=== PATIENT | male | born 1950 | race Caucasian/White ===

== ENCOUNTER 2016-07-31 13:43 | Day surgery (SDC) | payer OTHER ==
[~2016-07-31 13:43] MED LIST: Kenalog-40 IM ONE; Sensorcaine 0.25% 10 ML IJ ONE; Xylocaine 1% Vial 30 ML PF IJ ONE
[2016-07-31] MEDS ORDERED: KEFZOL 1 GM ONE (15:40)
[2016-07-31 15:42] VITALS: BP 154/89; PULSE 96; O2SAT 96
--- NOTE | 2016-07-31 20:59 | XRAY ---
Indication: Right SI joint injection. Intraoperative fluoroscopy was provided for 47 seconds. 2 digital spot images submitted for interpretation demonstrates posterior spinal needle with the tip projecting over the right SI joint. Small amount of contrast injected for needle tip placement. Correlate with intraoperative findings/report.
--- NOTE | 2016-08-01 08:43 | XRAY ---
47 seconds fluoroscopy time in surgery for right SI joint injection.
== END 2016-07-31 17:16 | disposition home or self-care (01) ==
LOC: SDC-PAIN 13:43
PROVIDERS: ATTEND Pain Medicine Interventional Pain Medicine
DX: M45.1 Ankylosing spondylitis of occipito-atlanto-axial region (principal); M25.551 Pain in right hip; M54.6 Pain in thoracic spine
CPT/HCPCS: 27096; 72020; 77003; J0690; J2001; J3301; Q9967

== ENCOUNTER 2017-01-01 08:29 | Emergency (ER) | payer OTHER ==
--- NOTE | 2017-01-01 09:16 | ERPHSYRPT ---
- History of Present Illness Time Seen by Provider: 01/01/17 09:05 Source: patient Exam Limitations: clinical condition Patient Subjective Stated Complaint: states he feels like he is going through withdrawal from tramadol. skin w/d, color normal. resp easy. takes tramadol for chronic knee pain and goes to pain clinic. states is due to have tramadol refilled on january 04 but has run out. last dose was two days ago. c/o insomnia, feeling "jittery", and nervous. Triage Nursing Assessment: ambulated to room per self. skin w/d, color normal, resp easy. c/o feeling nervous, jittery and unable to sleep. denies any pain at this time Physician History: PATIENT WITH A HISTORY OF CHRONIC RIGHT KNEE PAIN AND HAS BEEN OUT OF HIS ULTRAM FOR 2-3 DAYS, FEELS NERVOUS, AND INSOMNIA. HAS MINIMAL PAIN DISCOMFORT. DENIES NAUSEA OR EMESIS. DENIES NAUSEA, EMESIS, PALPITATIONS, ABDOMINAL PAIN OR DIARRHEA Timing/Duration: today Severity: mild Modifying Factors: Improves With: medication Associated Symptoms: other (INSOMNIA, NERVOUSNESS) Allergies/Adverse Reactions: No Known Drug Allergies Allergy (Verified 01/01/17 09:34) Home Medications: Aspirin 81 mg PO DAILY 07/04/16 [History] Atorvastatin Calcium [Lipitor] 80 mg PO DAILY 07/04/16 [History] Carvedilol 12.5 mg [Coreg 12.5 mg] 12.5 mg PO BID 07/04/16 [History] Celecoxib 100 mg [celeBREX 100 MG] 200 mg PO DAILY 07/04/16 [History] Clopidogrel Bisulfate 75 mg [PLAVIX 75 MG Tablet] 75 mg PO DAILY 07/04/16 [History] Dapagliflozin Propanediol [Farxiga] 10 mg PO DAILY 07/04/16 [History] Escitalopram Oxalate [Lexapro] 5 mg PO DAILY 07/04/16 [History] Famotidine 20 mg [Pepcid 20 MG] 40 mg PO DAILY 07/04/16 [History] Insulin Detemir [Levemir] 20 unit IJ BID 07/04/16 [History] Linagliptin/Metformin HCl [Jentadueto 2.5 mg-1000 mg Tab] 2.5 mg PO BID [History] Lisinopril 25 mg PO BID 07/04/16 [History] Silodosin [Rapaflo] 8 mg PO DAILY 07/04/16 [History] Terazosin HCl 2 mg PO DAILY 07/04/16 [History] Testosterone Cypionate 100 mg IM UD 07/04/16 [History] Tramadol HCl 50 mg [Ultram 50 mg] 50 mg PO TID 07/04/16 [History] Hx Tetanus, Diphtheria Vaccination/Date Given: No Hx Influenza Vaccination/Date Given: Yes Hx Pneumococcal Vaccination/Date Given: No Immunizations Up to Date: No - Review of Systems Constitutional: No Fever, No Chills Eyes: No Symptoms Ears, Nose, & Throat: No Symptoms Respiratory: No Symptoms, No Cough, No Dyspnea Cardiac: No Symptoms, No Chest Pain, No Edema, No Syncope Abdominal/Gastrointestinal: No Symptoms, No Abdominal Pain, No Nausea, No Vomiting, No Diarrhea Genitourinary Symptoms: No Symptoms, No Dysuria Musculoskeletal: Joint Pain, No Back Pain, No Neck Pain Skin: No Symptoms, No Rash Neurological: Other (NERVOUSNESS), No Dizziness, No Focal Weakness, No Sensory Changes Psychological: No Symptoms Endocrine: No Symptoms All Other Systems: Reviewed and Negative - Past Medical History Pertinent Past Medical History: Yes Neurological History: No Pertinent History Cardiac History: Arrhythmia, Coronary Artery Disease Respiratory History: No Pertinent History Endocrine Medical History: Diabetes Type II Musculoskeletal History: Osteoarthritis, Other Other Medical History: 09/18 CARDIAC STENT; R ACL TEAR; BILATERAL RTC TEAR W/ REPAIRS; CORTISONE INJECTIONS R KNEE - Past Surgical History Past Surgical History: Yes Cardiac: Cardiac Catheterization, Cardiac Stent Gastrointestinal: Cholecystectomy Musculoskeletal: Orthopedic Surgery Male Surgical History: Prostate Surgery Other Surgical History: bilat rotator cuff surgery - Social History Smoking Status: Never smoker Exposure to second hand smoke: No Drug Use: none Patient Lives Alone: No - Nursing Vital Signs Nursing Vital Signs: Initial Vital Signs Temperature 97.4 F Temperature Source Oral Pulse Rate 57 Respiratory Rate 16 Blood Pressure [Right Arm] 143/78 Pain Intensity 0 - Physical Exam General Appearance: no apparent distress, alert Eye Exam: PERRL/EOMI, eyes nml inspection Ears, Nose, Throat Exam: normal ENT inspection, TMs normal, pharynx normal, moist mucous membranes Neck Exam: normal inspection, non-tender, supple, full range of motion Respiratory Exam: normal breath sounds, lungs clear, No respiratory distress Cardiovascular Exam: regular rate/rhythm, normal heart sounds, normal peripheral pulses Gastrointestinal/Abdomen Exam: soft, normal bowel sounds, No tenderness, No mass Back Exam: normal inspection, normal range of motion, No CVA tenderness, No vertebral tenderness Extremity Exam: normal range of motion (WITH PAIN, PATELLA MIDLINE, FULL RANGE OF MOTION WITH PAIN, NO JOINT LAXITY UPON VALGUS/VARUS STRESS), pelvis stable Neurologic Exam: alert, oriented x 3, cooperative, normal mood/affect, nml cerebellar function, nml station & gait, sensation nml, No motor deficits Skin Exam: normal color, warm, dry, No rash Lymphatic Exam: No adenopathy SpO2 Interpretation: normal SpO2: 97 Oxygen Delivery: Room Air Ordered Tests: Active Orders 24 hr Category Date Time Status [facility] Director STAT Care 01/01/17 09:43 Active - Progress Progress Note: 01/01/17 09:16 CONSULTED PAIN CLINIC PROVIDER IS OUT UNTIL JANUARY 15, 2017, HAD PAIN CLINIC CONTACT HIS FAMILY PHYSICIAN FOR EVALUATION IN AM. PATIENT GIVEN 4 TABLES OF ULTRAM. Counseled pt/family regarding: diagnosis, need for follow-up - Departure Time of Disposition: 10:20 Departure Disposition: Home Clinical Impression: MEDICATION WITHDRAWAL Condition: Stable Critical Care Time: No Referrals: SILVIA JORGE [Primary Care Provider] - Instructions: Chronic Pain -- Adult Additional Instructions: ULTRAM 50MG EVERY 6 HOURS NEEDED. FOLLOWUP WITH YOUR FAMILY PHYSICIAN FOR EVALUATION TOMORROW.
[2017-01-01 10:46] VITALS: BP 141/84; PULSE 61; O2SAT 98
== END 2017-01-01 10:46 | disposition home or self-care (01) ==
LOC: ED 08:29
DX: F11.23 Opioid dependence with withdrawal (principal); I25.10 Atherosclerotic heart disease of native coronary artery without angina pectoris; E11.9 Type 2 diabetes mellitus without complications; Z98.61 Coronary angioplasty status
CPT/HCPCS: 93041; 99281; 99284

== ENCOUNTER 2018-04-24 06:04 | Day surgery (SDC) | payer MEDICARE ==
[2018-04-24] MEDS ORDERED: Ketamine HCl 50 MG/ML IV ONE (06:05)
[2018-04-24] MEDS ORDERED: DIPRIVAN 200 MG/20 ML IV ONE (06:05)
[2018-04-24] MEDS ORDERED: Lactated Ringers 1,000 ML IV ONE (06:26)
[2018-04-24] MEDS ORDERED: Lactated Ringers 1,000 ML IV SCH (06:30)
[2018-04-24 08:32] VITALS: O2SAT 99
[2018-04-24 08:44] VITALS: BP 135/74; PULSE 58
--- NOTE | 2018-04-24 11:01 | OP ---
SURGERY DATE/TIME: 04/23/2018 0725 PREOPERATIVE DIAGNOSIS: Screening exam. POSTOPERATIVE DIAGNOSIS: Normal colon. PROCEDURE: Colonoscopy. SURGEON: Dr. Gruber. ANESTHESIA: MAC. Medications given by anesthesia department. HISTORY: The patient is a 67 year-old white male patient presenting now for his second screening colonoscopy. His previous one was ten years ago. The patient was reappraised of the risks of the procedure including the risk of perforation, phlebitis, untoward reaction to medication, bleeding and missed lesions. The patient verbalized his understanding and desired to have the procedure performed. DESCRIPTION OF PROCEDURE: The patient was given the medications by the anesthesia department. He had continuous pulse oximetry, ECG monitoring, intermittent blood pressure monitoring and tidal CO2 monitoring during the examination. He was placed in the left lateral decubitus position. A digital rectal examination was performed and revealed normal anal sphincter tone, no masses and normal prostate. The flexible Olympus pediatric colonoscope was used to intubate the rectum. A view of the colon was developed sequentially to the cecum. Upon insertion and withdrawal, including a retroflex view in the rectum, no mucosal lesions were encountered. The scope was removed from the patient who tolerated the procedure well and was sent back to OP recovery in good condition. The prep was noted to be poor although adequate for evaluation of the colon. The colon was noted to be quite tortuous as well.
== END 2018-04-24 09:00 | disposition home or self-care (01) ==
LOC: SDC 06:04
PROVIDERS: ATTEND Family Medicine
DX: Z12.11 Encounter for screening for malignant neoplasm of colon (principal)
CPT/HCPCS: 82962; 94250; J2704

== ENCOUNTER 2019-03-22 08:33 | Day surgery (SDC) | payer MEDICARE ==
[~2019-03-22 08:33] MED LIST changes: -Kenalog-40 IM ONE; +Lactated Ringers 1,000 ML IV SCH; -Sensorcaine 0.25% 10 ML IJ ONE; -Xylocaine 1% Vial 30 ML PF IJ ONE
--- NOTE | 2019-03-22 09:58 | HP ---
DATE OF SURGERY: 03/22/2019 HISTORY OF PRESENT ILLNESS: The patient is a 68 year-old with chronic cough. No pain. History of reflux. Upper endoscopy years ago. Family history negative for esophageal or stomach cancer. He has chronic cough. He is in need of upper endoscopy to evaluate for reflux component as etiology. PAST MEDICAL HISTORY: Polycythemia. Chronic back pain. Diabetes mellitus type 2. PAST SURGICAL HISTORY: Both shoulder surgery. Knee replacements. Left hand surgery in the past. 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 MEDICATIONS: Plavix. Coreg. Lisinopril for some hypertension. He has been on glipizide, Levemir, terazosin, anti-inflammatory, aspirin, ranitidine. ALLERGIES: NKDA. FAMILY HISTORY: Cancer, hypertension. SOCIAL HISTORY: No alcohol abuse. REVIEW OF SYSTEMS: Fourteen systems reviewed. No chest pain or palpitations other systems negative or noncontributory as above and per preadmission questionnaire. PHYSICAL EXAMINATION: GENERAL: No acute distress. HEENT: Sclerae nonicteric. NECK: No JVD. CHEST: Equal excursion, nonlabored breathing. CVS: Regular rate and rhythm. ABDOMEN: Soft. No peritoneal signs. EXTREMITIES: No significant edema. NEURO: Alert, oriented, moving extremities symmetrically. No gross motor deficits noted. RECTAL: Deferred timed to endoscopy exam. IMPRESSION: Chronic cough, in need of upper endoscopy to evaluate for etiology. Risks and benefits explained in detail including but not limited to bleeding or infection, risk of bowel injury or perforation, possibly requiring open procedure, risk of missed or nondiagnosis or inability to diagnose the etiology of his symptoms, risk of sedation but not limited to. He understands and agrees to the planned procedure and will proceed with EGD with possible biopsy as an outpatient.
[2019-03-22] MEDS ORDERED: DIPRIVAN 200 MG/20 ML IV ONE (10:24)
[2019-03-22] MEDS ORDERED: Lactated Ringers 1,000 ML IV ONE (11:05)
[2019-03-22 11:34] VITALS: BP 143/69; PULSE 51; O2SAT 100
--- NOTE | 2019-03-22 14:39 | OP ---
SURGERY DATE/TIME: 03/22/2019 1026 PREOPERATIVE DIAGNOSIS: History of some reflux, history of chronic cough. Need for evaluation for esophagitis, gastritis, duodenitis. POSTOPERATIVE DIAGNOSIS: Mild erosive gastritis. PROCEDURES: 1) EGD with cold biopsy of the small bowel to evaluate for celiac sprue, to evaluate duodenitis as he had some duodenal erythema. 2) Cold biopsy of the antrum to evaluate for Helicobacter pylori. 3) Cold biopsy of the distal esophagus to evaluate for mild distal esophagitis changes, random co9ld biopsies mid esophagus to evaluate for eosinophilic esophagitis. SURGEON: Dr. Vamsi Yadav. ANESTHESIA: MAC. ESTIMATED BLOOD LOSS: Minimal. INDICATIONS: As noted above. Risks and benefits explained in detail and not limited to and consent obtained. DESCRIPTION OF PROCEDURE AND FINDINGS: The patient is taken to the operating room. MAC anesthesia introduced. After official time out and no disagreement with planned procedure, bite block positioned. Video gastroscope easily passed down the esophagus through the patent pylorus to the junction of the second and third portion of the duodenum. There were no signs of any obvious ulcers. There was a little bit of erythema in the duodenum. Cold biopsy taken to evaluate for celiac sprue or other etiology. There is no evidence of any ulcers, other masses or other mucosal lesions other than the erythema. The scope pulled back into the stomach. There were a couple of areas of erosions consistent with some mild erosive gastritis. No signs of anything large enough to call an ulcer. No signs of any obvious masses or polyps. Cold biopsy taken to evaluate for Helicobacter pylori. On retroflex the gastroesophageal junction seemed to be fairly snug against the scope. There were no signs of any endoscopically visible large hiatal hernia. Scope is straightened. Gastroesophageal junction about 41 cm. There was a little bit of phlegm in the distal esophagus. Some cold biopsy taken to evaluate for any kind of esophagitis. There were no gross signs of erythema. No signs of any obvious masses. Cold biopsy taken distal esophagus. Good hemostasis noted. Otherwise he had some reflux, some random cold biopsies of mid esophagus to evaluate for eosinophilic esophagitis to rule out other etiology. Good hemostasis noted. The patient tolerated the procedure well. The family was not initially in the waiting room to discuss the findings with, will see them a little later.
== END 2019-03-22 11:47 | disposition home or self-care (01) ==
LOC: SDC 08:33
PROVIDERS: ATTEND Surgery
DX: K29.70 Gastritis, unspecified, without bleeding (principal); E11.9 Type 2 diabetes mellitus without complications; I10 Essential (primary) hypertension; Z79.01 Long term (current) use of anticoagulants; Z79.899 Other long term (current) drug therapy
CPT/HCPCS: 82962; 88305; 99100; J2704

== ENCOUNTER 2019-10-07 17:36 | Inpatient (IN) | payer MEDICARE ==
[2019-10-07] MEDS ORDERED: Sodium Chloride 0.9% 1000 ML 1,000 ML IV STA (18:07)
[2019-10-07] MEDS ORDERED: TYLENOL 325 MG PO ONE (18:07)
[2019-10-07] MEDS ORDERED: DUONEB 0.5-3 MG/3 ml Neb IH ONE (18:09)
[2019-10-07 18:17] LABS: A-aADO2 100; ABG POTASSIUM 4.4 (3.5-5.1); ABG SITE RIGHT RADIAL; ALLEN TEST OK? YES; ARTERIAL BLOOD GAS BASE EXCESS -1.4 (-2.0-2.0); ARTERIAL BLOOD GAS FIO2 28 %; ARTERIAL BLOOD GAS PCO2 27 mmHg (35-45); ARTERIAL BLOOD GAS PO2 66 mmHg (75-100); ARTERIAL BLOOD GAS pH 7.49 (7.35-7.45); CARBOXYHEMOGLOBIN 1.3 % THgb (0.0-6.9); HCO3- 20.6 (22-28); HGB O2 SAT 92.8 g/dF (94-100)
--- NOTE | 2019-10-07 18:17 | ERPHSYRPT ---
- History of Present Illness Time Seen by Provider: 10/07/19 18:01 Source: patient Exam Limitations: no limitations Physician History: 69 years old male with history of COPD, coronary artery disease status post stenting, diabetes mellitus presented in the ER with chief complaint of fever and chills along with generalized body ache for almost 1 week. Patient report initially it started as upset stomach with some nausea and diarrhea which is getting better and now is having more cough productive of yellow-green sputum, copious in amount associated with some shortness of breath. Fever was 102 prior to arrival. Is also complaining of chest soreness all over. Denies any sick contact. Patient also reported he feels drained/fatigued with no energy to do his routine activity and wants to sleep all the time. Timing/Duration: week(s) (1), gradual onset, worse Cough Quality/Degree: severe, productive cough, sputum Modifying Factors: Improves With: activity, coughing, deep breath, exertion Associated Symptoms: fever, chills, chest pain/soreness, cough, muscle aches, shortness of breath, sore throat Allergies/Adverse Reactions: metformin Adverse Reaction (Verified 10/07/19 18:32) Stomach Pain Home Medications: Atorvastatin Calcium [Lipitor] 80 mg PO DAILY 07/04/16 [History] Carvedilol 12.5 mg [Coreg 12.5 mg] 25 mg PO BID 07/04/16 [History] Terazosin HCl 2 mg PO DAILY 07/04/16 [History] lisinopriL [Lisinopril] 2.5 mg PO DAILY 07/04/16 [History] Ranitidine HCl [Zantac 75] 150 mg PO BID 04/22/18 [History] Albuterol 8 gm Mdi Hfa [Ventolin Hfa MDI] 8 gm IH QID 02/23/19 [History] Brimonidine Tartrate/Timolol [Combigan 0.2%-0.5% Eye Drops] 15 ml OP BID [History] Duloxetine HCl 30 mg [Cymbalta 30 MG Capsule] 30 mg PO DAILY 02/23/19 [ History] Fluticasone Furoate [Flonase Sensimist] 5.9 ml NS DAILY 02/23/19 [History] Ropinirole HCl 1 mg PO HS 02/23/19 [History] Insulin Aspart [Novolog] 0 unit SQ TIDWM 03/22/19 [History] Insulin Glargine,Hum.rec.anlog [Toujeo Solostar] 42 unit SQ HS 03/22/19 [History ] Tramadol HCl [Ultram] 50 mg PO HS 03/22/19 [History] Hx Tetanus, Diphtheria Vaccination/Date Given: No Hx Influenza Vaccination/Date Given: Yes Hx Pneumococcal Vaccination/Date Given: No Travel Risk - International Travel Have you traveled outside of the country in past 3 weeks: No Have you or anyone close to you been diagnosed with or: No Do your reside in a community with a known COVID-19 case?: No - Review of Systems Constitutional: Fever, Chills, Fatigue, Malaise Ears, Nose, & Throat: No Symptoms Respiratory: Cough, Dyspnea, Wheezing Cardiac: Chest Pain Abdominal/Gastrointestinal: Abdominal Pain, Nausea, Diarrhea Genitourinary Symptoms: No Symptoms Musculoskeletal: Back Pain Skin: No Symptoms Neurological: No Symptoms Psychological: No Symptoms Endocrine: No Symptoms Hematologic/Lymphatic: No Symptoms Immunological/Allergic: No Symptoms - Past Medical History Pertinent Past Medical History: Yes Neurological History: No Pertinent History ENT History: Glaucoma Cardiac History: Arrhythmia, Hypertension Respiratory History: Asthma Endocrine Medical History: Diabetes Type II Musculoskeletal History: Arthritis GI Medical History: GERD History: No Pertinent History Psycho-Social History: Anxiety Male Reproductive Disorders: Prostate Problems Other Medical History: Pt is poor historian bt describes symptoms consistent with a previous episode of Afib - Past Surgical History Past Surgical History: Yes Neuro Surgical History: No Pertinent History Cardiac: Cardiac Catheterization, Cardiac Stent Respiratory: No Pertinent History Gastrointestinal: Cholecystectomy Genitourinary: No Pertinent History Musculoskeletal: Orthopedic Surgery Male Surgical History: No Pertinent History, Vasectomy Other Surgical History: bilat rotator cuff surgery, right total knee. - Social History Smoking Status: Never smoker Exposure to second hand smoke: No Drug Use: none Patient Lives Alone: No - Nursing Vital Signs Nursing Vital Signs: Initial Vital Signs Temperature 99.8 F 10/07/19 18:13 Pulse Rate 47 L 10/07/19 18:13 Respiratory Rate 24 10/07/19 18:13 Blood Pressure 157/78 10/07/19 18:13 O2 Sat by Pulse Oximetry 98 10/07/19 18:13 Pain Scale Pain Intensity 8 - Physical Exam General Appearance: mild distress, alert Eye Exam: PERRL/EOMI, eyes nml inspection Ears, Nose, Throat Exam: TMs normal, pharyngeal erythema Neck Exam: normal inspection, non-tender, supple, full range of motion Respiratory Exam: lungs clear, diminished breath sounds, crackles/rales Cardiovascular Exam: normal heart sounds, bradycardia Gastrointestinal/Abdomen Exam: soft, normal bowel sounds, tenderness ( Generalized mild) Back Exam: normal inspection, No CVA tenderness Extremity Exam: normal inspection, normal range of motion Neurologic Exam: alert, oriented x 3, cooperative, sensation nml Skin Exam: normal color SpO2 Interpretation: normal O2 Delivery: Nasal Cannula - Course Nursing assessment & vital signs reviewed: Yes EKG Interpreted by Me: RATE, NORMAL AXIS, Other (PVCs) Ordered Tests: Active Orders 24 hr Category Date Time Status EKG-ER Only STAT Care 10/07/19 18:07 Active IV Insertion STAT Care 10/07/19 18:07 Active CHEST 1 VIEW (PORTABLE) Stat Exams 10/07/19 18:08 Taken ARTERIAL BLOOD GASES Stat Lab 10/07/19 18:10 Completed BLOOD CULTURE Stat Lab 10/07/19 19:30 Received CBC W DIFF Stat Lab 10/07/19 19:30 Completed CMP Stat Lab 10/07/19 19:30 Received LIPASE Stat Lab 10/07/19 19:30 Received Lactic Acid Stat Lab 10/07/19 18:07 Completed MAGNESIUM Stat Lab 10/07/19 19:30 Received Manual Differential NC Stat Lab 10/07/19 19:30 Completed NT PRO BNP Stat Lab 10/07/19 19:30 Received TROPONIN Q3H Lab 10/07/19 19:30 Received TROPONIN Q3H Lab 10/07/19 21:15 Ordered TROPONIN Q3H Lab 10/08/19 00:15 Ordered TROPONIN Q3H Lab 10/08/19 03:15 Ordered TROPONIN Q3H Lab 10/08/19 06:15 Ordered UA W/RFX UR CULTURE Stat Lab 10/07/19 18:08 Uncollected Respiratory MDI STAT RT 10/07/19 18:25 Active Respiratory Therapy Assessment DAILY RT 10/07/19 18:26 Active Medication Summary Generic Name Dose Route Start Last Admin Trade Name Freq PRN Reason Stop Dose Admin Sodium Chloride 1,000 mls @ 499 mls/hr 10/07/19 18:07 10/07/19 18:41 Sodium Chloride 0.9% 1000 Ml IV 10/07/19 20:07 499 mls/hr .Q2H1M STA Administration Azithromycin 500 mg in 250 mls @ 250 mls/hr 10/07/19 19:00 10/07/19 19:22 Zithromax 500 Mg/ 250 Ml Nacl Premix IV 10/07/19 19:59 250 mls/hr STAT STA 250 mls/hr Administration Discontinued Medications Generic Name Dose Route Start Last Admin Trade Name Manuel PRN Reason Stop Dose Admin Acetaminophen 650 mg 10/07/19 18:07 10/07/19 18:44 Tylenol 325 Mg PO 10/07/19 18:08 650 mg STAT ONE Administration Acetaminophen Confirm 10/07/19 18:43 Tylenol 325 Mg Administered 10/07/19 18:44 Dose 650 mg .ROUTE .STK-MED ONE Albuterol Sulfate 2 puff 10/07/19 18:25 10/07/19 18:20 Ventolin Common Canister IH 10/07/19 18:26 2 puff ONCE ONE Administration Albuterol/Ipratropium 3 ml 10/07/19 18:09 10/07/19 18:45 Duoneb 0.5-3 Mg/3 Ml Neb IH 10/07/19 18:10 Not Given STAT ONE Magnesium Sulfate/Dextrose Confirm 10/07/19 18:24 Magnesium 1 Gm / 100 Ml D5w Administered 10/07/19 18:25 Dose 200 mls @ ud IV .STK-MED ONE Sodium Chloride Confirm 10/07/19 18:24 Sodium Chloride 0.9% 1000 Ml Administered 10/07/19 18:25 Dose 1,000 mls @ ud .ROUTE .STK-MED ONE Piperacillin Sod/Tazobactam Sod 3.375 gm in 100 mls @ 200 mls/hr 10/07/19 19: 00 10/07/19 19:24 Zosyn 3.375gm/100 Ml D5w IV 10/07/19 19:29 200 mls/hr STAT STA 200 mls/hr Administration Azithromycin Confirm 10/07/19 19:19 Zithromax 500 Mg/ 250 Ml Nacl Premix Administered 10/07/19 19:20 Dose 500 mg in 250 mls @ ud IV .STK-MED ONE Piperacillin Sod/Tazobactam Sod Confirm 10/07/19 19:19 Zosyn 3.375gm/100 Ml D5w Administered 10/07/19 19:20 Dose 3.375 gm in 100 mls @ ud IV .STK-MED ONE Lab/Rad Data: Laboratory Result Diagrams 10/07/19 19:30 Laboratory Results 10/07/19 10/07/19 10/07/19 Range/Units Unknown 19:30 18:10 WBC 6.2 (4.0-10.5) K/mm3 RBC 5.80 H (4.1-5.6) M/mm3 Hgb 15.5 (12.5-18.0) gm/dl Hct 44.9 (42-50) % MCV 77.4 L (78-100) fl MCH 26.7 (26-32) pg MCHC 34.5 (32-36) g/dl RDW 16.3 H (11.5-14.0) % Plt Count 96 L (150-450) K/mm3 Puncture Site RIGHT RADIAL pCO2 27 L (35-45) mmHg pO2 66 L (75-100) mmHg Base Excess -1.4 (-2.0-2.0) O2 Saturation 92.8 L (94-100) g/dF ABG pH 7.49 H (7.35-7.45) ABG HCO3 20.6 L (22-28) ABG O2 Sat (Measured) 95.0 (95-100) % Khalif Test YES A-a Gradient 100 a/A Ratio 0.40 Hemoglobin 16.0 Carboxyhemoglobin 1.3 (0.0-6.9) % THgb Methemoglobin 1.0 L (1.4-1.5) % Potassium 4.4 (3.5-5.1) Temperature 37.0 C POC O2 Flow Rate 28 % Lactic Acid (0.4-2.0) Influenza Type A Ag NEGATIVE (NEGATIVE) Influenza Type B Ag NEGATIVE (NEGATIVE) RSV (PCR) NEGATIVE (Negative) 10/07/19 Range/Units 18:07 WBC (4.0-10.5) K/mm3 RBC (4.1-5.6) M/mm3 Hgb (12.5-18.0) gm/dl Hct (42-50) % MCV (78-100) fl MCH (26-32) pg MCHC (32-36) g/dl RDW (11.5-14.0) % Plt Count (150-450) K/mm3 Puncture Site pCO2 (35-45) mmHg pO2 (75-100) mmHg Base Excess (-2.0-2.0) O2 Saturation (94-100) g/dF ABG pH (7.35-7.45) ABG HCO3 (22-28) ABG O2 Sat (Measured) (95-100) % Khalif Test A-a Gradient a/A Ratio Hemoglobin Carboxyhemoglobin (0.0-6.9) % THgb Methemoglobin (1.4-1.5) % Potassium (3.5-5.1) Temperature C POC O2 Flow Rate % Lactic Acid 1.2 (0.4-2.0) Influenza Type A Ag (NEGATIVE) Influenza Type B Ag (NEGATIVE) RSV (PCR) (Negative) - Progress Progress: improved, re-examined Air Movement: fair Progress Note: 10/07/19 19:49 69 years old is evaluated for fever chills and cough along with shortness of breath. He is given a small bolus of fluid along with Tylenol and inhaler. Patient EKG showed bigeminy and is given a dose of magnesium. Has heart rate is in 80s. ABG did not show hypoxemia or hypercapnia. Has normal white count normal lactate. Negative flu screen. Chest x-ray showed bilateral pneumonia and started on broad-spectrum antibiotics. Discussed with Dr. Schmid patient is accepted for admission. Moderate screening testing is done with pending results. Will place patient in isolation negative pressure room. Blood Culture(s) Obtained: Yes Antibiotics given: Yes Discussed with : Nel Will see patient in: hospital (full admit) Counseled pt/family regarding: lab results, diagnosis, rad results - Departure Departure Disposition: In-patient Admission Clinical Impression: Pneumonia Qualifiers: Pneumonia type: due to unspecified organism Laterality: bilateral Lung location : unspecified part of lung Qualified Code(s): J18.9 - Pneumonia, unspecified organism Condition: Fair Critical Care Time: Yes Critical Care Time(excluding separately billable procedures): Critical 30-74 mins Referrals: FATOU VALADEZ [Primary Care Provider] -
[2019-10-07] MEDS ORDERED: Magnesium 1 Gm / 100 Ml D5W*** 200 ML IV ONE (18:24)
[2019-10-07] MEDS ORDERED: Sodium Chloride 0.9% 1000 ML 1,000 ML ONE (18:24)
[2019-10-07] MEDS ORDERED: VENTOLIN COMMON CANISTER IH ONE (18:25)
[2019-10-07] MEDS ORDERED: TYLENOL 325 MG ONE (18:43)
[2019-10-07] MEDS ORDERED: Zithromax 500 MG/ 250 ML NaCl Premix 500 MG/250 ML IVPB IV STA (19:00)
[2019-10-07] MEDS ORDERED: Zosyn 3.375GM/100 Ml D5W 3.375 GM/100 ML IVPB IV STA (19:00)
[2019-10-07] MEDS ORDERED: Zithromax 500 MG/ 250 ML NaCl Premix 500 MG/250 ML IVPB IV ONE (19:19)
[2019-10-07] MEDS ORDERED: Zosyn 3.375GM/100 Ml D5W 3.375 GM/100 ML IVPB IV ONE (19:19)
[2019-10-07 19:42] LABS: Hematocrit 44.9 % (42-50); Hemoglobin 15.5 gm/dl (12.5-18.0); Mean Cell Volume 77.4 fl (78-100); Mean Corpuscular Hemoglobin 26.7 pg (26-32); Mean Corpuscular Hgb Concent. 34.5 g/dl (32-36); Platelet Count 96 K/mm3 (150-450); Red Cell Distribution Width 16.3 % (11.5-14.0); White Blood Count 6.2 K/mm3 (4.0-10.5)
[2019-10-07 19:42] LABS: INFLUENZA A NEGATIVE (NEGATIVE); INFLUENZA B NEGATIVE (NEGATIVE); RESPIRATORY SYNCTIAL VIRUS NEGATIVE (Negative)
[2019-10-07 19:51] LABS: ALBUMIN 3.9 g/dL (3.5-5.0); ALKALINE PHOSPHATASE 108 U/L (38-126); ANION GAP 13.2 MEQ/L (5-15); BLOOD UREA NITROGEN 24 mg/dL (9-20); CHLORIDE 102 mmol/L (98-107); Calcium 8.9 mg/dL (8.4-10.2); Carbon Dioxide 28 mmol/L (22-30); Creatinine 1 0.92 mg/dL (0.66-1.25); Glucose 154 mg/dL (74-106); LIPASE 27 U/L (23-300); Potassium 4.2 mmol/L (3.5-5.1); SGOT/AST 40 U/L (17-59); SGPT/ALT 17 U/L (0-50); SODIUM 138 mmol/L (137-145); Total Protein 7.4 g/dL (6.3-8.2)
[2019-10-07 20:00] LABS: MAGNESIUM 1.8 mg/dL (1.6-2.3)
[2019-10-07] MEDS ORDERED: ULTRAM 50 MG PO ONE (20:00)
[2019-10-07] MEDS ORDERED: ULTRAM 50 MG ONE (20:14)
[2019-10-07] MEDS ORDERED: HUMULIN R SQ PRN (21:21)
[2019-10-07] MEDS ORDERED: Phenergan 25 MG INJ IV PRN (22:24)
[2019-10-07] MEDS ORDERED: HYTRIN 1 MG ONE (22:52)
[2019-10-07] MEDS ORDERED: Cymbalta 30 MG Capsule ONE (22:52)
[2019-10-07] MEDS ORDERED: ZOCOR 20MG ONE (22:53)
[2019-10-07] MEDS ORDERED: Pepcid 20 MG ONE (22:53)
[2019-10-07] MEDS ORDERED: REQUIP 2MG TAB ONE (22:53)
[2019-10-07] MEDS ORDERED: ZOCOR 20MG PO ONE (23:00)
[2019-10-07] MEDS: NEURONTIN 300 MG PO SCH (23:35)
[2019-10-07] MEDS: Pepcid 20 MG PO SCH (23:35)
[2019-10-07] MEDS: COREG 12.5 MG PO SCH (23:36)
[2019-10-07] MEDS: TYLENOL 325 MG PO PRN (23:37)
[2019-10-08] MEDS ORDERED: Zosyn 3.375 GM Vial IV ONE ×2 (00:22→05:19)
[2019-10-08 00:25] LABS: ANISOCYTOSIS 1+; Lymphocytes 12 % (24-44); Monocyte 4 % (0.0-12.0); Neutrophils 84 % (36.-66.); Poikilocytosis RARE; Total Cells Counted 100; Toxic Granulation RARE
[2019-10-08 00:26] LABS: Platelet Estimate DECREASED (NORMAL)
[2019-10-08] MEDS: Zosyn 3.375 GM Vial 3.375 GM in Sodium Chloride 100ML MINI-BAG PLUS 100 ML IV SCH ×3 (01:23→12:15)
[2019-10-08] MEDS ORDERED: VENTOLIN COMMON CANISTER IH PRN (02:37)
[2019-10-08 04:24] LABS: ALBUMIN 2.9 g/dL (3.5-5.0); ALKALINE PHOSPHATASE 77 U/L (38-126); ANION GAP 10.3 MEQ/L (5-15); BLOOD UREA NITROGEN 25 mg/dL (9-20); CHLORIDE 107 mmol/L (98-107); Carbon Dioxide 24 mmol/L (22-30); Glucose 157 mg/dL (74-106); Potassium 4.1 mmol/L (3.5-5.1); SGOT/AST 41 U/L (17-59); SGPT/ALT 14 U/L (0-50); SODIUM 137 mmol/L (137-145); Total Protein 5.8 g/dL (6.3-8.2)
[2019-10-08 04:48] LABS: Hematocrit 40.4 % (42-50); Hemoglobin 13.9 gm/dl (12.5-18.0); Mean Cell Volume 77.4 fl (78-100); Mean Corpuscular Hemoglobin 26.6 pg (26-32); Mean Corpuscular Hgb Concent. 34.4 g/dl (32-36); Mean Platelet Volume 13.8 fl (7.5-11.0); Platelet Count 90 K/mm3 (150-450); Red Blood Count 5.22 M/mm3 (4.1-5.6); White Blood Count 5.4 K/mm3 (4.0-10.5)
[2019-10-08 05:35] LABS: Slide Review YES
--- NOTE | 2019-10-08 08:24 | XRAY ---
Indication: Fever. Pneumonia. Comparison: January 05, 2019. Portable chest demonstrates new bilateral patchy air space disease without consolidation/large effusion or cardiomegaly. Bony thorax intact again with mild degenerative changes and double curvature scoliosis.
[2019-10-08] MEDS: COREG 12.5 MG PO SCH (11:09)
[2019-10-08] MEDS: Pepcid 20 MG PO SCH (11:09)
[2019-10-08] MEDS: NEURONTIN 300 MG PO SCH (11:09)
[2019-10-08 11:19] LABS: Appearance CLEAR (CLEAR); Bilirubin NEGATIVE (NEGATIVE); Blood NEGATIVE Ery/ul (0-5); Glucose 50 mg/dL (NEGATIVE); Ketones NEGATIVE (NEGATIVE); Leukocyte Esterase NEGATIVE (NEGATIVE); Mucus SLIGHT /HPF (NEGATIVE); Nitrite NEGATIVE (NEGATIVE); Protein,Urine Dip 30 (Negative); Specific Gravity 1.027 (1.005-1.025); Urobilinogen 2 mg/dL (0-1); WBC 0-2 /HPF (0-5)
[2019-10-08] MEDS: TYLENOL 325 MG PO PRN (12:16)
--- NOTE | 2019-10-08 12:47 | CONS ---
CONSULT DATE: 10/08/2019 HISTORY OF PRESENT ILLNESS: Mr. Perera is a 69 y/o male who has been admitted with 1 week history of constitutional symptoms of generalized aches/pains along with fever. Patient started getting progressively more short of breath and came to the ER where a chest x-ray has revealed bilateral patchy infiltrates. Clinical suspicion for his illness being associated to COVID-19 is high. He has been placed in respiratory isolation. Patient does report clinical improvement since being in hospital. He denies any previous pulmonary problems. His effort tolerance has been well preserved. PAST MEDICAL HISTORY: Positive for history of hypertension, hyperlipidemia, and gastroesophageal reflux, ? obstructive airway disease, DM, and arthritis along with prostate enlargement. PAST SURGICAL HISTORY: No recent surgeries. PERSONAL AND SOCIAL HISTORY: Patient has been a nonsmoker. 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 FAMILY HISTORY: ALLERGIES: METFORMIN. MEDICATIONS AT HOME: He was on Lipitor, Coreg, terazosin, Lisinopril, Zantac, Ventolin, Combivent, Cymbalta, Flonase, Requip, NovoLog, Toujeo, and Ultram. PHYSICAL EXAMINATION: This is a middle aged male who appears comfortable. He is currently on nasal cannula at 4 liters maintaining saturation of 90-92%. HEENT: Normocephalic. Oral exam is limited. CVS: First and second heart sounds normal, regular rhythm. RESPIRATORY: Shows diminished breath sounds. Scattered crackles are heard. ABDOMEN: Obese. EXTREMITIES: No significant edema is noted. Troponin I has been negative. WBC 5.4, Hgb 13.9, Hct 40, platelets 90, sodium 137, potassium 4.1, chloride 107, bicarb 24, glucose 157, BUN 25, creatinine 0.8. Chest x-ray noted. First troponin was 0.45. Influenza A and B and RSV are negative. Lactic acid was negative. The pH 7.49, PCO2 27, and PO2 66 on 2 liters nasal cannula yesterday. ASSESSMENT: This is a 69 y/o male admitted with: 1. ACUTE HYPOXIC RESPIRATORY FAILURE. 2. BILATERAL ALVEOLAR INFILTRATES SUGGESTIVE OF COMMUNITY ACQUIRED PNEUMONIA, ? BACTERIAL VS VIRAL. 3. HISTORY OF HYPERTENSION AND CORONAY ARTERY DISEASE WITH PREVIOUS STENT IN 2015 AND DIABETES MELLITUS ALONG WITH DYSLIPIDEMIA. RECOMMENDATIONS: 1. Patient has been placed on supplemental O2. Advised to keep saturations above 92%. He is being monitored with continuous pulse oximetry. 2. Cover with broad spectrum antibiotics to mainly cover secondary bacterial infection. 3. Repeat follow-up chest x-ray in 48-72 hours. At any point if patient decompensates further, he may require ventilator support. He is currently on Zosyn and Zithromax. 4. DVT and GI prophylaxis. 5. Await COVID-19 test results. Further recommendations pending clinical improvement. Discussed with respiratory therapy, nursing staff as well as patient. Thank you for allowing me to participate in care of Mr. Perera.
[2019-10-08 13:04] VITALS: BP 143/72; PULSE 73; O2SAT 86
[2019-10-08 13:41] LABS: A-aADO2 606; ABG POTASSIUM 4.5 (3.5-5.1); ABG SITE RIGHT BRACHIAL; ARTERIAL BLD GAS O2 SATURATION 95.8 % (95-100); ARTERIAL BLOOD GAS BASE EXCESS -1.7 (-2.0-2.0); ARTERIAL BLOOD GAS FIO2 100 %; ARTERIAL BLOOD GAS PCO2 33 mmHg (35-45); ARTERIAL BLOOD GAS PO2 66 mmHg (75-100); ARTERIAL BLOOD GAS pH 7.43 (7.35-7.45); CARBOXYHEMOGLOBIN 1.4 % THgb (0.0-6.9); HCO3- 21.9 (22-28); HGB O2 SAT 93.4 g/dF (94-100)
[2019-10-08] MEDS ORDERED: Versed 50 MG/ 10 Ml MDV*** 50 MG in Sodium Chloride 0.9% 250 ML 240 ML IV SCH (14:30)
[2019-10-08] MEDS ORDERED: VERSED 5 MG/5 ML IV ONE (15:08)
[2019-10-08] MEDS ORDERED: Zemuron 100 MG/10 ML IV ONE ×2 (15:09→15:12)
[2019-10-08] MEDS ORDERED: EPINEPHRINE ABBOJECT 1 MG IV ONE (15:15)
[2019-10-08] MEDS ORDERED: ATROPINE SULFATE 1MG SYR ABBOJECT IV ONE (15:19)
[2019-10-08] MEDS ORDERED: Sodium Chloride 0.9% 1000 ML 1,000 ML ONE (15:29)
[2019-10-08] MEDS ORDERED: Lasix 20 MG/2 ML ONE (16:39)
[2019-10-08] MEDS ORDERED: Lasix 20 MG/2 ML IV ONE (16:40)
[2019-10-08 17:01] LABS: A-aADO2 566; ABG HEMOGLOBIN 16.2; ABG POTASSIUM 5.3 (3.5-5.1); ARTERIAL BLD GAS O2 SATURATION 74.2 % (95-100); ARTERIAL BLOOD GAS BASE EXCESS -7.9 (-2.0-2.0); ARTERIAL BLOOD GAS FIO2 100 %; ARTERIAL BLOOD GAS PO2 51 mmHg (75-100); ARTERIAL BLOOD GAS VENT MODE A/C; CARBOXYHEMOGLOBIN 0.8 % THgb (0.0-6.9); HCO3- 23.4 (22-28); HGB O2 SAT 73.3 g/dF (94-100); Methhemoglobin 0.4 % (1.4-1.5); paO2 pAO1 0.08
[2019-10-08 17:02] LABS: ARTERIAL BLOOD GAS pH 7.09 (7.35-7.45)
[2019-10-08 17:03] LABS: ABG SITE RIGHT BRACHIAL; ARTERIAL BLOOD GAS PCO2 77 mmHg (35-45)
[2019-10-08 17:49] LABS: A-aADO2 531; ABG HEMOGLOBIN 15.3; ARTERIAL BLD GAS O2 SATURATION 98.7 % (95-100); ARTERIAL BLOOD GAS BASE EXCESS -4.2 (-2.0-2.0); ARTERIAL BLOOD GAS FIO2 100 %; ARTERIAL BLOOD GAS PO2 105 mmHg (75-100); ARTERIAL BLOOD GAS VENT MODE A/C; CARBOXYHEMOGLOBIN 1.1 % THgb (0.0-6.9); HCO3- 24.8 (22-28); HGB O2 SAT 96.9 g/dF (94-100); Methhemoglobin 0.7 % (1.4-1.5); paO2 pAO1 0.17
[2019-10-08 17:50] LABS: ARTERIAL BLOOD GAS PCO2 62 mmHg (35-45); ARTERIAL BLOOD GAS pH 7.21 (7.35-7.45)
[2019-10-08 17:51] LABS: ABG POTASSIUM 6.1 (3.5-5.1); ABG SITE LEFT RADIAL; ALLEN TEST OK? YES
[2019-10-08] MEDS ORDERED: Zemuron 100 MG/10 ML 100 MG in Sodium Chloride 0.9% 100 ML IVPB 90 ML IV SCH (18:00)
[2019-10-08] MEDS ORDERED: Cymbalta 30 MG Capsule PO SCH (22:00)
[2019-10-08] MEDS ORDERED: Zithromax 500 MG/ 250 ML NaCl Premix 500 MG/250 ML IVPB IV SCH (22:00)
[2019-10-08] MEDS ORDERED: REQUIP 2MG TAB PO SCH (22:00)
[2019-10-08] MEDS ORDERED: ZOCOR 20MG PO SCH (22:00)
[2019-10-08] MEDS ORDERED: HYTRIN 1 MG PO SCH (22:00)
--- NOTE | 2019-10-08 22:07 | XRAY ---
Indication: Tube placement. Comparison: One day earlier Portable chest demonstrates new endotracheal tube tip 4 cm above the glenroy and worsening diffuse bilateral airspace disease greatest right upper lobe appearing more consolidated. No pneumothorax, large effusion, or cardiomegaly.
== END 2019-10-08 19:58 | disposition short-term general hospital (02) | DRG 193 ==
LOC: ED 17:36 → MED SURG 21:19
PROVIDERS: ADMIT Internal Medicine; ATTEND Internal Medicine
DX: J18.9 Pneumonia, unspecified organism (principal); J96.01 Acute respiratory failure with hypoxia; I10 Essential (primary) hypertension; E11.9 Type 2 diabetes mellitus without complications; E78.5 Hyperlipidemia, unspecified; R07.9 Chest pain, unspecified; R10.9 Unspecified abdominal pain; R11.0 Nausea; R19.7 Diarrhea, unspecified; Z86.79 Personal history of other diseases of the circulatory system; Z79.899 Other long term (current) drug therapy
CPT/HCPCS: 31500; 36000; 36415; 36600; 71045; 80053; 81001; 82375; 82803; 82962; 83036; 83605; 83690; 83735; 83880; 84484; 85025; 85027; 87040; 87631; 92950; 93005; 94002; 94640; 94760; 94762; 94799; 99000; 99284; 99291; J0171; J0456; J0461; J1940; J2250; J2543; J2550; J3475; A9270-GY

== ENCOUNTER 2020-06-28 14:01 | Emergency (ER) | payer MEDICARE ==
--- NOTE | 2020-06-28 14:32 | ERPHSYRPT ---
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 staff from PT states that BP was 90/56 on arrival and dropped to 76/52 after 15 min of exerci se and did not imrpove after rest. states also that O2 sat fell to 85% as well. pt does not appear in resp distress and only c/o now is tiredness. ambulated to restroom and to room with no issues. skin PWD, A&Ox4. Physician History: This is a 69-year-old white male has a history of coronary artery disease and has a single cardiac stent and is taking Eliquis and aspirin and presents with asymptomatic hypotension and hypoxia. The patient exercised today at the fitness center and then followed that with rehab evaluation for former Covid patients. Part of that rehab was to take his blood pressure and his oxygenation level at room air. He had 85% room air oxygenation level. It is since increased on its own to 95 to 97% here in the emergency department. His systol ic blood pressure was measured at the rehab facility high 70s to low 90s. He arrives to the emergency department in the high 80s for his systolic blood pressure readings. Patient denies shortness of breath. He denies dizziness. He denies chest pain. Patient states that he has been eating and drinking well. He has had no vomiting and no diarrhea. There is been no change in his medications. Patient was diagnosed with COVID-19 infection in October 2019. He has a history of hypertension, insulin-dependent diabetes, and gastroesophageal reflux disease. His supervisor extruding department is Dr. Colvin Timing/Duration: today Associated Symptoms: denies symptoms Allergies/Adverse Reactions: metformin Adverse Reaction (Verified 06/28/20 14:18) Stomach Pain Home Medications: Atorvastatin Calcium [Lipitor] 80 mg PO HS 07/04/16 [History] Carvedilol 12.5 mg [Coreg 12.5 mg] 25 mg PO BID 07/04/16 [History] Terazosin HCl 2 mg PO HS 07/04/16 [History] lisinopriL [Lisinopril] 2.5 mg PO DAILY 07/04/16 [History] raNITIdine HCL [Zantac 75] 150 mg PO BID 04/22/18 [History] Albuterol 8 gm Mdi Hfa [Ventolin Hfa MDI] 8 gm IH QID PRN 02/23/19 [History] Brimonidine Tartrate/Timolol [Combigan 0.2%-0.5% Eye Drops] 1 ml OP BID 02/23/19 [History] Duloxetine HCl 30 mg [Cymbalta 30 MG Capsule] 30 mg PO HS 02/23/19 [History] Fluticasone Furoate [Flonase Sensimist] 5.9 ml NS DAILY 02/23/19 [History] Ropinirole HCl 2 mg PO HS 02/23/19 [History] Insulin Aspart [Novolog] 0 unit SQ TIDWM 03/22/19 [History] Insulin Glargine,Hum.rec.anlog [Toujeo Solostar] 42 unit SQ HS 03/22/19 [History] Tramadol HCl [Ultram] 50 mg PO HS 03/22/19 [History] Gabapentin 300 mg PO TID 10/07/19 [History] Isosorbide Mononitrate 30 mg [Imdur 30 MG] 30 mg PO DAILY 10/07/19 [History] PANTOPRAZOLE 40 mg Tablet [Protonix 40MG Tablet] 40 mg PO DAILY 10/07/19 [History] Apixaban [Eliquis] 5 mg PO DAILY 06/28/20 [History] Hx Tetanus, Diphtheria Vaccination/Date Given: Yes Hx Influenza Vaccination/Date Given: Yes Hx Pneumococcal Vaccination/Date Given: Yes Immunizations Up to Date: Yes Travel Risk - International Travel Have you traveled outside of the country in past 3 weeks: No If Yes, where;: n - Coronavirus Screening Are you exhibiting any of the following symptoms?: No Close contact with a COVID-19 positive Pt in past 14-21 Days: No - Review of Systems Constitutional: No Symptoms Eyes: No Symptoms Ears, Nose, & Throat: No Symptoms Respiratory: No Symptoms Cardiac: No Symptoms Abdominal/Gastrointestinal: No Symptoms Genitourinary Symptoms: No Symptoms Musculoskeletal: No Symptoms Skin: No Symptoms Neurological: No Symptoms Psychological: No Symptoms Endocrine: No Symptoms Hematologic/Lymphatic: No Symptoms Immunological/Allergic: No Symptoms All Other Systems: Reviewed and Negative - Past Medical History Pertinent Past Medical History: Yes Neurological History: No Pertinent History ENT History: Glaucoma Cardiac History: Hypertension Respiratory History: No Pertinent History Endocrine Medical History: Diabetes Type II Musculoskeletal History: Osteoarthritis GI Medical History: GERD History: No Pertinent History Psycho-Social History: Anxiety Male Reproductive Disorders: Prostate Problems Other Medical History: rhythmically induced coma, watching liver and kidneys due to being so sick lately, R TKA. - Past Surgical History Past Surgical History: Yes Neuro Surgical History: No Pertinent History Cardiac: Cardiac Catheterization, Cardiac Stent Respiratory: No Pertinent History Gastrointestinal: Cholecystectomy Genitourinary: No Pertinent History Musculoskeletal: Joint Replacement, Orthopedic Surgery Male Surgical History: No Pertinent History, Vasectomy Other Surgical History: bilat rotator cuff surgery, right total knee. - Social History Smoking Status: Never smoker Exposure to second hand smoke: No Drug Use: none Patient Lives Alone: No - Nursing Vital Signs Nursing Vital Signs: Initial Vital Signs Temperature 97.9 F 06/28/20 14:05 Pulse Rate 54 L 06/28/20 14:05 Respiratory Rate 18 06/28/20 14:05 Blood Pressure 89/45 06/28/20 14:05 O2 Sat by Pulse Oximetry 98 06/28/20 14:05 Pain Scale Pain Intensity 0 - Physical Exam General Appearance: no apparent distress, alert Eye Exam: PERRL/EOMI, eyes nml inspection Ears, Nose, Throat Exam: normal ENT inspection, moist mucous membranes Neck Exam: normal inspection, non-tender, supple, full range of motion Respiratory Exam: normal breath sounds, lungs clear, airway intact, No chest tenderness, No respiratory distress Cardiovascular Exam: regular rate/rhythm, normal heart sounds, normal peripheral pulses Gastrointestinal/Abdomen Exam: soft, normal bowel sounds, No tenderness Rectal Exam: not done Back Exam: normal inspection, normal range of motion, No CVA tenderness, No vertebral tenderness Extremity Exam: normal inspection, normal range of motion, pelvis stable Neurologic Exam: alert, oriented x 3, cooperative, clinical trial manager II-XII nml as tested, normal mood/affect, nml cerebellar function, nml station & gait Skin Exam: normal color, warm, dry Lymphatic Exam: No adenopathy SpO2 Interpretation: normal SpO2: 98 O2 Delivery: Room Air - Course Nursing assessment & vital signs reviewed: Yes EKG Interpreted by Me: RATE (56), Sinus Rhythm (With ventricular bigeminy. Comparison EKG dated 08/07/2015 has no significant changes in comparison. Today's EKG shows no acute ischemic changes), NORMAL AXIS, NORMAL INTERVALS, NORMAL QRS, NORMAL ST-T Ordered Tests: Active Orders 24 hr Category Date Time Status Assembler Bonding STAT Care 06/28/20 14:39 Active EKG-ER Only STAT Care 06/28/20 14:38 Active IV Insertion STAT Care 06/28/20 14:38 Active Pulse Oximetry (ED) STAT Care 06/28/20 14:38 Active CHEST WITH CONTRAST [CT] Stat Exams 06/28/20 15:43 Taken CBC W DIFF Stat Lab 06/28/20 14:45 Completed CMP Stat Lab 06/28/20 14:45 Completed D-DIMER QUANTITATIVE Stat Lab 06/28/20 14:45 Completed MAGNESIUM Stat Lab 06/28/20 14:45 Completed NT PRO BNP Stat Lab 06/28/20 14:45 Completed TROPONIN Q3H Lab 06/28/20 05:00 Completed TROPONIN Q3H Lab 06/28/20 14:45 Completed TROPONIN Q3H Lab 06/28/20 20:45 Ordered TROPONIN Q3H Lab 06/28/20 23:45 Ordered TROPONIN Q3H Lab 06/29/20 02:45 Ordered Medication Summary Generic Name Dose Route Start Last Admin Trade Name Freq PRN Reason Stop Dose Admin Sodium Chloride 500 mls @ 100 mls/hr 06/28/20 15:45 06/28/20 15:48 Sodium Chloride 0.9% 500 Ml IV 07/28/20 15:44 100 mls/hr .Q5H BARBARA Administration Discontinued Medications Generic Name Dose Route Start Last Admin Trade Name Freq PRN Reason Stop Dose Admin Sodium Chloride 500 mls @ 500 mls/hr 06/28/20 14:40 06/28/20 15:49 Sodium Chloride 0.9% 500 Ml IV 06/28/20 15:39 Infused .Q1H ONE Infusion Sodium Chloride Confirm 06/28/20 14:45 Sodium Chloride 0.9% 500 Ml Administered 06/28/20 14:46 Dose 500 mls @ ud IV .STK-MED ONE Lab/Rad Data: Laboratory Result Diagrams 06/28/20 14:45 06/28/20 14:45 Laboratory Results 06/28/20 06/28/20 06/28/20 Range/Units 14:45 14:45 14:45 WBC (4.0-10.5) K/mm3 RBC (4.1-5.6) M/mm3 Hgb (12.5-18.0) gm/dl Hct (42-50) % MCV (78-100) fl MCH (26-32) pg MCHC (32-36) g/dl RDW (11.5-14.0) % Plt Count (150-450) K/mm3 MPV (7.5-11.0) fl Gran % (36.0-66.0) % Eos # (Auto) (0-0.5) Absolute Lymphs (auto) (1.0-4.6) Absolute Monos (auto) (0.0-1.3) Lymphocytes % (24.0-44.0) % Monocytes % (0.0-12.0) % Eosinophils % (0.00-5.0) % Basophils % (0.0-0.4) % Absolute Granulocytes (1.4-6.9) Basophils # (0-0.4) D-Dimer 800 H* (215-500) ng/mL Sodium 133 L (137-145) mmol/L Potassium 4.8 (3.5-5.1) mmol/L Chloride 101 (98-107) mmol/L Carbon Dioxide 25 (22-30) mmol/L Anion Gap 12.4 (5-15) MEQ/L BUN 39 H (9-20) mg/dL Creatinine 1.05 (0.66-1.25) mg/dL Estimated GFR > 60.0 ML/MIN Glucose 203 H (74-106) mg/dL Calcium 8.9 (8.4-10.2) mg/dL Magnesium 1.9 (1.6-2.3) mg/dL Total Bilirubin 0.70 (0.2-1.3) mg/dL AST 30 (17-59) U/L ALT 26 (0-50) U/L Alkaline Phosphatase 100 (38-126) U/L Troponin I < 0.012 (0.000-0.034) ng/mL NT-Pro-B Natriuret Pep 241 (0-900) pg/mL Serum Total Protein 6.5 (6.3-8.2) g/dL Albumin 3.6 (3.5-5.0) g/dL 06/28/20 06/28/20 Range/Units 14:45 05:00 WBC 8.1 (4.0-10.5) K/mm3 RBC 4.92 (4.1-5.6) M/mm3 Hgb 13.4 (12.5-18.0) gm/dl Hct 40.8 L (42-50) % MCV 82.9 (78-100) fl MCH 27.2 (26-32) pg MCHC 32.8 (32-36) g/dl RDW 15.1 H (11.5-14.0) % Plt Count 157 (150-450) K/mm3 MPV 13.4 H (7.5-11.0) fl Gran % 54.3 (36.0-66.0) % Eos # (Auto) 0.41 (0-0.5) Absolute Lymphs (auto) 2.14 (1.0-4.6) Absolute Monos (auto) 1.11 (0.0-1.3) Lymphocytes % 26.5 (24.0-44.0) % Monocytes % 13.7 H (0.0-12.0) % Eosinophils % 5.1 H (0.00-5.0) % Basophils % 0.4 (0.0-0.4) % Absolute Granulocytes 4.40 (1.4-6.9) Basophils # 0.03 (0-0.4) D-Dimer (215-500) ng/mL Sodium (137-145) mmol/L Potassium (3.5-5.1) mmol/L Chloride (98-107) mmol/L Carbon Dioxide (22-30) mmol/L Anion Gap (5-15) MEQ/L BUN (9-20) mg/dL Creatinine (0.66-1.25) mg/dL Estimated GFR ML/MIN Glucose (74-106) mg/dL Calcium (8.4-10.2) mg/dL Magnesium (1.6-2.3) mg/dL Total Bilirubin (0.2-1.3) mg/dL AST (17-59) U/L ALT (0-50) U/L Alkaline Phosphatase (38-126) U/L Troponin I < 0.012 (0.000-0.034) ng/mL NT-Pro-B Natriuret Pep (0-900) pg/mL Serum Total Protein (6.3-8.2) g/dL Albumin (3.5-5.0) g/dL - Progress Progress: improved, re-examined Progress Note: 06/28/20 16:58 Medical decision making: Patient was reexamined. Patient states he is feeling really good at this time. He has no chest pain is not having any shortness of breath. We are awaiting the 3-hour troponin result as well as the CTA of chest report. If those are negative we will discharge the patient to home. 06/28/20 17:36 CAT scan of the chest with contrast reveals no pulmonary emboli present. There is no evidence of pneumonia or infiltrate present. There is no acute card iopulmonary process. Patient's second troponin is also normal. Patient has no symptoms. He is feeling well. His room air oxygenation is running between 95 and 97%. Counseled pt/family regarding: lab results, diagnosis, need for follow-up - Departure Departure Disposition: Home Clinical Impression: Hypotension, Hypoxia Condition: Stable Critical Care Time: Yes Critical Care Time(excluding separately billable procedures): Critical 30-74 mins Referrals: LUIS F PENNY MD [Primary Care Provider] - Additional Instructions: Take your medication as prescribed. Call your supervisor extruding department and ui developer designer as well as your primary care doctor tomorrow to make arrangements for follow-up appointment. Return to the emergency department if you become symptomatic watching for signs of dizziness, chest pain, shortness of breath or any other concerns you may have letter not typical for you.
[2020-06-28] MEDS ORDERED: Sodium Chloride 0.9% 500 ML 500 ML IV ONE ×3 (14:40→15:47)
[2020-06-28 14:45] LABS: BASOPHIL % 0.4 % (0.0-0.4); Basophil (Absolute #) 0.03 (0-0.4); Eosinophil % 5.1 % (0.00-5.0); Eosinophil (Absolute #) 0.41 (0-0.5); Hematocrit 40.8 % (42-50); Hemoglobin 13.4 gm/dl (12.5-18.0); Lymphocyte (Absolute #) 2.14 (1.0-4.6); Lymphocytes % 26.5 % (24.0-44.0); Mean Cell Volume 82.9 fl (78-100); Mean Corpuscular Hemoglobin 27.2 pg (26-32); Mean Corpuscular Hgb Concent. 32.8 g/dl (32-36); Mean Platelet Volume 13.4 fl (7.5-11.0); Monocyte (Absolute #) 1.11 (0.0-1.3); Monocytes % 13.7 % (0.0-12.0); Neutrophil % 54.3 % (36.0-66.0); Platelet Count 157 K/mm3 (150-450); Red Blood Count 4.92 M/mm3 (4.1-5.6); Red Cell Distribution Width 15.1 % (11.5-14.0); White Blood Count 8.1 K/mm3 (4.0-10.5)
[2020-06-28 15:00] LABS: ALBUMIN 3.6 g/dL (3.5-5.0); ALKALINE PHOSPHATASE 100 U/L (38-126); ANION GAP 12.4 MEQ/L (5-15); BLOOD UREA NITROGEN 39 mg/dL (9-20); CHLORIDE 101 mmol/L (98-107); Calcium 8.9 mg/dL (8.4-10.2); Carbon Dioxide 25 mmol/L (22-30); Creatinine 1 1.05 mg/dL (0.66-1.25); EST GLOMERULAR FILTRATION RATE > 60.0 ML/MIN; Glucose 203 mg/dL (74-106); MAGNESIUM 1.9 mg/dL (1.6-2.3); NT PRO BNP 241 pg/mL (0-900); Potassium 4.8 mmol/L (3.5-5.1); SGOT/AST 30 U/L (17-59); SGPT/ALT 26 U/L (0-50); SODIUM 133 mmol/L (137-145); Total Protein 6.5 g/dL (6.3-8.2)
[2020-06-28] MEDS ORDERED: Sodium Chloride 0.9% 500 ML 500 ML IV SCH (15:45)
[2020-06-28 17:38] VITALS: O2SAT 98
[2020-06-28 17:49] VITALS: BP 111/65; PULSE 72
--- NOTE | 2020-06-28 22:22 | XRAY ---
Indication: Weakness. Elevated d-dimer. Multiple contiguous axial images obtained through the chest using 100 cc Isovue 370 contrast and PE protocol. Comparison: None There is good opacification of the pulmonary arteries to include the lobar and segmental branches. No pulmonary embolus. Heart is borderline enlarged. Aorta is minimally larger scribed without aneurysm/dissection. No pathologic mediastinal/hilar lymphadenopathy. Lungs demonstrates mild scattered peripheral atelectasis/scarring bilaterally. No suspicious pulmonary mass, infiltrate, consolidation, or effusion. Bony thorax intact with mild degenerative changes throughout the spine, moderate double curvature thoracolumbar scoliosis, and mild right shoulder degenerative arthropathy. Limited upper abdomen demonstrates mild fatty liver, 1.5 cm descending duodenal diverticulum, and fecal stasis. Impression: 1. Negative pulmonary embolus. 2. Incidental scattered peripheral atelectasis/scarring, borderline cardiomegaly, fatty liver, duodenal diverticulum, fecal stasis, and chronic bony findings. 3. Remaining CT chest with contrast exam is negative.
== END 2020-06-28 17:50 | disposition home or self-care (01) ==
LOC: ED 14:01
DX: I95.9 Hypotension, unspecified (principal); R09.02 Hypoxemia; I10 Essential (primary) hypertension; E11.9 Type 2 diabetes mellitus without complications; K21.9 Gastro-esophageal reflux disease without esophagitis; I25.10 Atherosclerotic heart disease of native coronary artery without angina pectoris; Z79.899 Other long term (current) drug therapy
CPT/HCPCS: 36000; 36415; 71260; 80053; 83735; 83880; 84484; 85025; 85379; 93005; 93041; 94760; 96360; 96361; 99284; 99291

== ENCOUNTER 2020-07-26 08:07 | Day surgery (SDC) | payer MEDICARE ==
[2020-07-26] MEDS ORDERED: LIDOCAINE HCL 2% 100 MG/5 ML IJ ONE (08:08)
[2020-07-26] MEDS ORDERED: Xylocaine 1% Vial 30 ML PF IJ ONE (08:08)
[2020-07-26] MEDS ORDERED: Depo-Medrol 40 MG/ML IM ONE (08:08)
[2020-07-26] MEDS ORDERED: Ketamine HCl 50 MG/ML ONE (08:47)
[2020-07-26] MEDS ORDERED: DIPRIVAN 200 MG/20 ML IV ONE (08:57)
--- NOTE | 2020-07-26 11:27 | XRAY ---
Indication: Bilateral L4-L5 and L5-S1 MBB. Intraoperative fluoroscopy provided for 44 seconds. 2 digital spot images submitted for interpretation demonstrates posterior needle tips projecting over the left and right L3-L5 nerve roots. Correlate with intraoperative findings/report.
--- NOTE | 2020-07-26 11:30 | XRAY ---
44 seconds of fluoroscopy was used in surgery for a bilateral L4-L5, L5-S1 MBB.
[2020-07-26] MEDS ORDERED: Lactated Ringers 1,000 ML IV ONE (14:59)
== END 2020-07-26 10:30 | disposition home or self-care (01) ==
LOC: SDC-PAIN 08:07
PROVIDERS: ATTEND Psychiatry & Neurology Pain Medicine
DX: M47.816 Spondylosis without myelopathy or radiculopathy, lumbar region (principal); I10 Essential (primary) hypertension; I25.10 Atherosclerotic heart disease of native coronary artery without angina pectoris; Z79.899 Other long term (current) drug therapy; I48.91 Unspecified atrial fibrillation; Z79.01 Long term (current) use of anticoagulants
CPT/HCPCS: 64493; 64494; 72020; 77002; 82947; J1030; J2001; J2704

== ENCOUNTER 2022-02-08 10:53 | Emergency (ER) | payer MEDICARE ==
[2022-02-08] MEDS ORDERED: Sodium Chloride 0.9% 1000 ML 1,000 ML IV SCH (11:30)
[2022-02-08 12:05] LABS: Absolute Neutrophil Ct (ANC) 5.71 x10^3/uL (1.4-6.9); Basophil (Absolute #) 0.05 x10^3/uL (0-0.4); Eosinophil % 4.5 % (0.00-5.0); Eosinophil (Absolute #) 0.41 x10^3/uL (0-0.5); Hematocrit 42.2 % (42-50); Hemoglobin 14.8 g/dL (12.5-18.0); Lymphocyte (Absolute #) 1.86 x10^3/uL (1.0-4.6); Lymphocytes % 20.5 % (24.0-44.0); Mean Cell Volume 82.3 fL (78-100); Mean Corpuscular Hemoglobin 28.8 pg (26-32); Mean Corpuscular Hgb Concent. 35.1 g/dL (32-36); Mean Platelet Volume 12.2 fL (7.5-11.0); Monocyte (Absolute #) 1.01 x10^3/uL (0.0-1.3); Monocytes % 11.1 % (0.0-12.0); Platelet Count 189 x10^3/uL (150-450); Red Blood Count 5.13 x10^6/uL (4.1-5.6); Red Cell Distribution Width 14.5 % (11.5-14.0); White Blood Count 9.1 x10^3/uL (4.0-10.5)
[2022-02-08 12:10] VITALS: BP 135/82
[2022-02-08] MEDS ORDERED: Sodium Chloride 0.9% 1000 ML 1,000 ML ONE (12:11)
[2022-02-08 12:13] LABS: Appearance CLEAR (CLEAR); Bilirubin SMALL (NEGATIVE); Glucose NEGATIVE (NEGATIVE); Ketones TRACE (NEGATIVE); Specific Gravity >=1.030 (1.005-1.025)
[2022-02-08 12:14] LABS: Dipstick done @ ? MAIN LAB; Nitrite NEGATIVE (NEGATIVE); Protein,Urine Dip 30 (Negative); RBC NEGATIVE Ery/ul (0-5); Urobilinogen NORMAL mg/dL (0-1)
[2022-02-08 12:15] LABS: Bacteria NONE SEEN /HPF (NEGATIVE); Mucus SLIGHT /HPF (NEGATIVE); Urine Cultured Indicated? NO; WBC 0-2 /HPF (0-5)
[2022-02-08 12:20] LABS: ALBUMIN 3.9 g/dL (3.5-5.0); ALKALINE PHOSPHATASE 108 U/L (38-126); AMYLASE 88 U/L (30-110); ANION GAP 12.6 MEQ/L (5-15); BLOOD UREA NITROGEN 20 mg/dL (9-20); CHLORIDE 101 mmol/L (98-107); Calcium 9.6 mg/dL (8.4-10.2); Carbon Dioxide 28 mmol/L (22-30); Creatinine 1 0.98 mg/dL (0.66-1.25); EST GLOMERULAR FILTRATION RATE > 60.0 ML/MIN; Glucose 170 mg/dL (74-106); LIPASE 37 U/L (23-300); Potassium 3.9 mmol/L (3.5-5.1); SGOT/AST 27 U/L (17-59); SGPT/ALT 27 U/L (0-50); SODIUM 138 mmol/L (137-145); Total Protein 7.2 g/dL (6.3-8.2)
--- NOTE | 2022-02-08 12:59 | ERPHSYRPT ---
- History of Present Illness Time Seen by Provider: 02/08/22 11:25 Historian: patient Exam Limitations: no limitations Patient Subjective Stated Complaint: constipation Triage Nursing Assessment: Patient ambulated back to ED and transferred self to bed. Patient A+O X3. Patient's skin pink, warm and dry. Patient complains of constipation for a couple months. Patient states he started having abdominal pain 5/10. Abdomen distended with BS X 4. Physician History: Patient is a 71-year-old male who presents with a complaint of abdominal pain constipation and bloating for 2 months. He has had very few BMs he has had no fever chills or sweats he has had some nausea but no vomiting his gallbladder has been removed. He in 2019 had severe COVID but did manage to survive. Timing/Duration: week(s) (8), worse Activities at Onset: none Quality: cramping, fullness Abdominal Pain Onset Location: generalized abdomen Severity of Pain-Max: moderate Severity of Pain-Current: moderate Modifying Factors: Improves With: defecating Associated Symptoms: nausea, No fever/chills Previous symptoms: no prior history Allergies/Adverse Reactions: metformin Adverse Reaction (Verified 02/08/22 11:15) Stomach Pain Home Medications: Atorvastatin Calcium [Lipitor] 80 mg PO HS 07/04/16 [History] Carvedilol 12.5 mg [Coreg 12.5 mg] 25 mg PO BID 07/04/16 [History] Terazosin HCl 2 mg PO HS 07/04/16 [History] lisinopriL [Lisinopril] 10 mg PO BID 07/04/16 [History] Albuterol 8 gm Mdi Hfa [Ventolin Hfa MDI] 8 gm IH QID PRN 02/23/19 [History] Brimonidine Tartrate/Timolol [Combigan 0.2%-0.5% Eye Drops] 1 ml OP BID 02/23/19 [History] Fluticasone Furoate [Flonase Sensimist] 5.9 ml NS DAILY 02/23/19 [History] Ropinirole HCl 2 mg PO HS 02/23/19 [History] Insulin Aspart [Novolog] 0 unit SQ TIDWM 03/22/19 [History] Tramadol HCl [Ultram] 50 mg PO BID 03/22/19 [History] Gabapentin 300 mg PO TID 10/07/19 [History] Apixaban [Eliquis] 5 mg PO DAILY 06/28/20 [History] Aripiprazole 10 mg [Abilify 10 MG] 10 mg PO DAILY 10/08/21 [History] Clonidine HCl 0.1 mg [Clonidine 0.1 mg Tablet] 0.1 mg PO BID 10/08/21 [History] Ezetimibe 10 mg [Zetia 10 MG] 10 mg PO DAILY 10/08/21 [History] Famotidine 20 mg [Pepcid 20 MG] 20 mg PO DAILY 10/08/21 [History] Insulin Glargine,Hum.rec.anlog [Basaglar Kwikpen U-100] 42 unit SQ DAILY 10/08/21 [History] Magnesium Oxide 400 mg [Mag-Ox 400] 400 mg PO BID 10/08/21 [History] Multivitamin [Multi-Vitamin Daily] 1 each PO DAILY 10/08/21 [History] Ropinirole HCl [Ropinirole ER] 2 mg PO HS 10/08/21 [History] Venlafaxine HCl [Venlafaxine HCl ER] 150 mg PO DAILY 10/08/21 [History] Zinc 440 mg PO DAILY 10/08/21 [History] Hx Tetanus, Diphtheria Vaccination/Date Given: Yes Hx Influenza Vaccination/Date Given: Yes Hx Pneumococcal Vaccination/Date Given: Yes Immunizations Up to Date: Yes Travel Risk - International Travel Have you traveled outside of the country in past 3 weeks: No - Coronavirus Screening Are you exhibiting any of the following symptoms?: No Close contact with a COVID-19 positive Pt in past 14-21 Days: No - Vaccine Status Have you recieved a Covid-19 vaccination: Yes [place] [employer]: Unknown - Vaccination Dates Date of 2cond Vaccination (if applicable): na Dates if Unknown: na - Review of Systems Constitutional: No Fever, No Chills Eyes: No Symptoms Ears, Nose, & Throat: No Symptoms Respiratory: No Cough, No Dyspnea Cardiac: No Chest Pain, No Edema, No Syncope Abdominal/Gastrointestinal: Abdominal Pain, Nausea, Constipation, No Vomiting, No Diarrhea Genitourinary Symptoms: No Dysuria Musculoskeletal: No Back Pain, No Neck Pain Skin: No Rash Neurological: No Dizziness, No Focal Weakness, No Sensory Changes Psychological: No Symptoms Endocrine: No Symptoms All Other Systems: Reviewed and Negative - Past Medical History Pertinent Past Medical History: Yes Neurological History: TIA ENT History: Glaucoma Cardiac History: Coronary Artery Disease, Hypertension, Myocardial Infarction (IA) Respiratory History: Sleep Apnea, Other Endocrine Medical History: Diabetes Type II Musculoskeletal History: Osteoarthritis GI Medical History: GERD History: No Pertinent History Psycho-Social History: Anxiety Male Reproductive Disorders: Prostate Problems Other Medical History: COVID-19 [facility]. SOB AT TIMES. R TKA. polysythemia - Past Surgical History Past Surgical History: Yes Neuro Surgical History: No Pertinent History Cardiac: Cardiac Stent, Cardiac Catheterization Respiratory: No Pertinent History Gastrointestinal: Cholecystectomy Genitourinary: No Pertinent History Musculoskeletal: Orthopedic Surgery, Joint Replacement Male Surgical History: No Pertinent History, Vasectomy Other Surgical History: bilat rotator cuff surgery, right total knee. left hand. 10/02/21 cardiac ablation - Social History Smoking Status: Never smoker Exposure to second hand smoke: No Drug Use: none Patient Lives Alone: No - Nursing Vital Signs Nursing Vital Signs: Initial Vital Signs Temperature 98.0 F 02/08/22 11:17 Pulse Rate 58 L 02/08/22 11:17 Respiratory Rate 18 02/08/22 11:17 Blood Pressure 155/89 02/08/22 11:17 O2 Sat by Pulse Oximetry 96 02/08/22 11:17 Pain Scale Pain Intensity 5 - Physical Exam General Appearance: mild distress, alert Eye Exam: PERRL/EOMI, eyes nml inspection Ears, Nose, Throat Exam: normal ENT inspection, pharynx normal, moist mucous membranes Neck Exam: normal inspection, non-tender, supple, full range of motion Respiratory Exam: normal breath sounds, lungs clear, No respiratory distress Cardiovascular Exam: regular rate/rhythm, normal heart sounds Gastrointestinal/Abdomen Exam: soft, tenderness, guarding, No mass, No rebound Back Exam: normal inspection, normal range of motion, No CVA tenderness, No vertebral tenderness Extremity Exam: normal inspection, normal range of motion, pelvis stable Neurologic Exam: alert, oriented x 3, cooperative, normal mood/affect, nml cerebellar function, sensation nml, No motor deficits Skin Exam: normal color, warm, dry SpO2 Interpretation: normal SpO2: 99 O2 Delivery: Room Air - Course Nursing assessment & vital signs reviewed: Yes EKG Interpreted by Me: RATE (83), A-fib, NORMAL AXIS, Non-specific ST Changes, Other (PVC'S) - Radiology Exams Chest X-ray Interpretation: Reviewed by me - CT Exams Abdomen/Pelvis CT Interpretation: Other (Reviewed by me) Ordered Tests: Active Orders 24 hr Category Date Time Status EKG-ER Only STAT Care 02/08/22 11:20 Active IV Insertion STAT Care 02/08/22 11:20 Active ABDOMEN AND PELVIS W/0 CONTRAS [CT] Stat Exams 02/08/22 11:20 Completed CHEST 1 VIEW (PORTABLE) Stat Exams 02/08/22 11:20 Completed AMYLASE Stat Lab 02/08/22 11:40 Completed CBC W DIFF Stat Lab 02/08/22 11:40 Completed CMP Stat Lab 02/08/22 11:40 Completed LIPASE Stat Lab 02/08/22 11:40 Completed Lactic Acid Stat Lab 02/08/22 11:48 Completed Lactic Acid Stat Lab 02/08/22 13:50 Received TROPONIN [id number] Lab 02/08/22 11:40 Completed UA W/RFX CULTURE Stat Lab 02/08/22 11:32 Completed Medication Summary Generic Name Dose Route Start Last Admin Trade Name Freq PRN Reason Stop Dose Admin Sodium Chloride 1,000 mls @ 250 mls/hr 02/08/22 11:30 02/08/22 12:12 Sodium Chloride 0.9% 1000 Ml IV 03/10/22 11:29 250 mls/hr .Q4H BARBARA Administration Lab/Rad Data: Laboratory Result Diagrams 02/08/22 11:40 02/08/22 11:40 Laboratory Results 02/08/22 02/08/22 02/08/22 Range/Units 11:48 11:40 11:40 WBC 9.1 (4.0-10.5) x10^3/uL RBC 5.13 (4.1-5.6) x10^6/uL Hgb 14.8 (12.5-18.0) g/dL Hct 42.2 (42-50) % MCV 82.3 (78-100) fL MCH 28.8 (26-32) pg MCHC 35.1 (32-36) g/dL RDW 14.5 H (11.5-14.0) % Plt Count 189 (150-450) x10^3/uL MPV 12.2 H (7.5-11.0) fL Gran % 63.0 (36.0-66.0) % Immature Gran % (Auto) 0.3 (0.00-0.4) % Nucleat RBC Rel Count 0.0 (0.00-0.1) % Eos # (Auto) 0.41 (0-0.5) x10^3/uL Immature Gran # (Auto) 0.03 (0.00-0.03) x10^3u/L Absolute Lymphs (auto) 1.86 (1.0-4.6) x10^3/uL Absolute Monos (auto) 1.01 (0.0-1.3) x10^3/uL Absolute Nucleated RBC 0.00 (0.00-0.01) x10^3u/L Lymphocytes % 20.5 L (24.0-44.0) % Monocytes % 11.1 (0.0-12.0) % Eosinophils % 4.5 (0.00-5.0) % Basophils % 0.6 (0.0-0.4) % Absolute Granulocytes 5.71 (1.4-6.9) x10^3/uL Basophils # 0.05 (0-0.4) x10^3/uL Sodium 138 (137-145) mmol/L Potassium 3.9 (3.5-5.1) mmol/L Chloride 101 (98-107) mmol/L Carbon Dioxide 28 (22-30) mmol/L Anion Gap 12.6 (5-15) MEQ/L BUN 20 (9-20) mg/dL Creatinine 0.98 (0.66-1.25) mg/dL Estimated GFR > 60.0 ML/MIN Glucose 170 H (74-106) mg/dL Lactic Acid 2.0 (0.4-2.0) Calcium 9.6 (8.4-10.2) mg/dL Total Bilirubin 0.90 (0.2-1.3) mg/dL AST 27 (17-59) U/L ALT 27 (0-50) U/L Alkaline Phosphatase 108 (38-126) U/L Troponin I (0.000-0.034) ng/mL Serum Total Protein 7.2 (6.3-8.2) g/dL Albumin 3.9 (3.5-5.0) g/dL Amylase 88 (30-110) U/L Lipase 37 (23-300) U/L Urinalys Dipstick Clnc Urine Color (YELLOW) Urine Appearance (CLEAR) Urine pH (5-6) Ur Specific Dawson (1.005-1.025) POC Urine Protein Conf (Negative) Urine Ketones (NEGATIVE) Urine Nitrite (NEGATIVE) Urine Bilirubin (NEGATIVE) Urine Urobilinogen (0-1) mg/dL Urine Leukocytes (NEGATIVE) Urine WBC (Auto) (0-5) /HPF Urine RBC (Auto) (0-2) /HPF U Epithel Cells (Auto) (FEW) /HPF Urine Bacteria (Auto) (NEGATIVE) /HPF Urine RBC (0-5) Gerard/ul Urine Mucus (Auto) (NEGATIVE) /HPF Ur Culture Indicated? Urine Glucose (NEGATIVE) mg/dL 02/08/22 02/08/22 Range/Units 11:40 11:32 WBC (4.0-10.5) x10^3/uL RBC (4.1-5.6) x10^6/uL Hgb (12.5-18.0) g/dL Hct (42-50) % MCV (78-100) fL MCH (26-32) pg MCHC (32-36) g/dL RDW (11.5-14.0) % Plt Count (150-450) x10^3/uL MPV (7.5-11.0) fL Gran % (36.0-66.0) % Immature Gran % (Auto) (0.00-0.4) % Nucleat RBC Rel Count (0.00-0.1) % Eos # (Auto) (0-0.5) x10^3/uL Immature Gran # (Auto) (0.00-0.03) x10^3u/L Absolute Lymphs (auto) (1.0-4.6) x10^3/uL Absolute Monos (auto) (0.0-1.3) x10^3/uL Absolute Nucleated RBC (0.00-0.01) x10^3u/L Lymphocytes % (24.0-44.0) % Monocytes % (0.0-12.0) % Eosinophils % (0.00-5.0) % Basophils % (0.0-0.4) % Absolute Granulocytes (1.4-6.9) x10^3/uL Basophils # (0-0.4) x10^3/uL Sodium (137-145) mmol/L Potassium (3.5-5.1) mmol/L Chloride (98-107) mmol/L Carbon Dioxide (22-30) mmol/L Anion Gap (5-15) MEQ/L BUN (9-20) mg/dL Creatinine (0.66-1.25) mg/dL Estimated GFR ML/MIN Glucose (74-106) mg/dL Lactic Acid (0.4-2.0) Calcium (8.4-10.2) mg/dL Total Bilirubin (0.2-1.3) mg/dL AST (17-59) U/L ALT (0-50) U/L Alkaline Phosphatase (38-126) U/L Troponin I < 0.012 (0.000-0.034) ng/mL Serum Total Protein (6.3-8.2) g/dL Albumin (3.5-5.0) g/dL Amylase (30-110) U/L Lipase (23-300) U/L Urinalys Dipstick Clnc MAIN LAB Urine Color YELLOW (YELLOW) Urine Appearance CLEAR (CLEAR) Urine pH 5.0 (5-6) Ur Specific Dawson >=1.030 (1.005-1.025) POC Urine Protein Conf 30 (Negative) Urine Ketones TRACE (NEGATIVE) Urine Nitrite NEGATIVE (NEGATIVE) Urine Bilirubin SMALL (NEGATIVE) Urine Urobilinogen NORMAL (0-1) mg/dL Urine Leukocytes NEGATIVE (NEGATIVE) Urine WBC (Auto) 0-2 (0-5) /HPF Urine RBC (Auto) NONE (0-2) /HPF U Epithel Cells (Auto) NONE (FEW) /HPF Urine Bacteria (Auto) NONE SEEN (NEGATIVE) /HPF Urine RBC NEGATIVE (0-5) Gerard/ul Urine Mucus (Auto) SLIGHT (NEGATIVE) /HPF Ur Culture Indicated? NO Urine Glucose NEGATIVE (NEGATIVE) mg/dL - Progress Progress: improved - Departure Departure Disposition: Home Clinical Impression: Constipation Condition: Stable Critical Care Time: No Referrals: ERNIE RUDOLPH MD [Primary Care Provider] - Follow up/PCP as directed Instructions: Constipation, Adult (DC) Prescriptions: Polyethylene Glycol 3350 17 gm [Miralax Powder 17GM PACKET] 17 gm PO DAILY 30 Days #30 packet
--- NOTE | 2022-02-08 13:05 | XRAY ---
Exam: AP portable chest film from 02/08/2022 Comparison: Two-view chest series from 02/14/2020. Indication: Chest pain. Findings: The film was obtained in a lordotic projection. The transverse heart size is normal. I again see minimal convexity of the upper thoracic spine toward the left centered at T2-T3 and at least moderate convexity of the lower thoracic spine toward the right centered at T8-T9. The lungs are adequately expanded and appear clear. No air space infiltrates, vascular congestion, pneumothorax, or pleural effusion is seen. Degenerative changes are seen within both shoulders. Impression: 1. No acute cardiopulmonary disease is seen, no significant change from 02/14/2020.
--- NOTE | 2022-02-08 13:27 | XRAY ---
Exam: CT of the abdomen and pelvis without IV contrast from 02/08/2022. CTDI: 13.38 mGy Comparison: [None.] Indication: 71-year-old male with chest pain. In addition, the patient complains of constipation for a couple months with abdominal bloating. The patient has a history of prior cholecystectomy, as well as a kidney stone (4-5 years ago). Technique: Non-IV contrast axial images were obtained throughout the abdomen and pelvis. Reconstructed coronal and sagittal images were created and reviewed. No oral contrast was given. Findings: The visualized lung bases appear clear. The heart size is normal. Right coronary artery and posterior descending coronary artery calcification is seen. Assessment of the solid abdominal organs is limited on a non-IV contrast study only. The liver appears of normal size without definite hepatic mass or intrahepatic biliary duct distention. The gallbladder is surgically absent. I do not see any surgical clips within the subhepatic space. The spleen is remarkable for small calcified granuloma at its inferior aspect. Fluid/secretions are noted within the stomach lumen. The pancreas appears unremarkable. I believe there is a small duodenal diverticulum near the junction of the second and third portions of the duodenal sweep. The adrenal glands appear grossly unremarkable. Some arteriosclerotic vascular calcification is seen within the right renal arteries. In addition, there is a tiny nonobstructing stone within the lower pole of the right kidney, best seen on sagittal image #72 and coronal image #94. In addition, I believe there is a tiny calyceal stone within the lower pole of the left kidney on sagittal image #154 and coronal image #88. No hydronephrosis or gross evidence of renal mass is seen. A calcified, mildly tortuous abdominal aorta is seen. There is no abdominal aortic aneurysm or abnormal retroperitoneal lymphadenopathy. No free intraperitoneal air or bowel containing ventral hernia is seen. Minimal protrusion of intraperitoneal fat into the subcutaneous fat is seen at the level of the umbilicus on midline sagittal image #101. The bowel does not appear distended. I see no findings of bowel obstruction. I see no findings of appendicitis within the right lower quadrant. Scattered stool is seen throughout the colon. Some scattered vascular calcification is seen within the iliac arteries and common femoral arteries. I see no pelvic mass, abnormal pelvic lymphadenopathy, or free intraperitoneal fluid. The urinary bladder appears grossly unremarkable. The seminal vesicles are symmetric. The prostate gland is mildly enlarged measuring about 5.2 cm in width and 3.8 cm in AP depth on axial image #78. There is minimal protrusion of fat into both inguinal canals. No bowel containing inguinal hernia is seen. Some small nonspecific lymph nodes are seen within each groin. The skeleton reveals a moderate mid lumbar rotary levoscoliosis. Moderate to marked multilevel degenerative disc disease is seen throughout the visualized thoracolumbar spine. An acute fracture or aggressive bone lesion is not seen. Impression: 1. I see no findings of bowel obstruction. Scattered stool is seen throughout the colon. No findings of appendicitis are seen within the right lower quadrant. 2. The patient is status post cholecystectomy. 3. A small nonobstructing stone is seen within the lower pole of each kidney. No hydronephrosis is seen. 4. Numerous other incidental findings are seen, as outlined above. No other acute intra-abdominal or pelvic process is seen.
[2022-02-08 13:30] VITALS: PULSE 77
[2022-02-08 13:54] VITALS: O2SAT 99
== END 2022-02-08 14:07 | disposition home or self-care (01) ==
LOC: ED 10:53
DX: K59.00 Constipation, unspecified (principal); R10.84 Generalized abdominal pain; R11.0 Nausea; I10 Essential (primary) hypertension; E11.9 Type 2 diabetes mellitus without complications; Z79.01 Long term (current) use of anticoagulants; Z79.4 Long term (current) use of insulin; Z79.899 Other long term (current) drug therapy; Z86.16 Personal history of COVID-19
CPT/HCPCS: 36000; 36415; 71045; 74176; 80053; 81015; 82150; 83605; 83690; 84484; 85025; 93005; 99284

== ENCOUNTER 2025-03-27 11:50 | Observation (INO) | payer MEDICARE ==
[2025-03-27 12:35] LABS: BASOPHIL % 0.5 % (0.2-1.2); Basophil (Absolute #) 0.05 x10^3/uL (0.01-0.08); Eosinophil (Absolute #) 0.04 x10^3/uL (0.04-0.54); Hematocrit 42.8 % (40.1-51.0); Hemoglobin 13.7 g/dL (13.7-17.5); IMMATURE GRAN # 0.04 x10^3u/L (0.001-0.031); IMMATURE GRAN % 0.4 % (0.001-0.429); Lymphocyte (Absolute #) 1.04 x10^3/uL (1.32-3.57); Mean Corpuscular Hemoglobin 25.9 pg (25.7-32.2); Mean Corpuscular Hgb Concent. 32.0 g/dL (32.3-36.5); Monocyte (Absolute #) 0.58 x10^3/uL (0.30-0.82); NUCLEATED RBC # 0.00 x10^3u/L (0.00-0.012); NUCLEATED RBC % 0.0 % (0.00-0.2); Platelet Count 292 x10^3/uL (163-337); Red Blood Count 5.28 x10^6/uL (4.63-6.08); White Blood Count 9.5 x10^3/uL (4.23-9.07)
[2025-03-27 13:00] LABS: Calcium 9.9 mg/dL (8.4-10.2); Carbon Dioxide 22.0 mmol/L (22-30); Creatinine 1 1.25 mg/dL (0.66-1.25); EST GLOMERULAR FILTRATION RATE 61.2 ML/MIN; Glucose 149.0 mg/dL (74-106); NT PRO BNPII 3710.0 pg/mL (<300); Potassium 4.4 mmol/L (3.5-5.1); SGOT/AST 32.0 U/L (17-59); SGPT/ALT 18.0 U/L (0-50); Total Protein 7.5 g/dL (6.3-8.2)
--- NOTE | 2025-03-27 13:15 | ERPHSYRPT ---
- History of Present Illness Time Seen by Provider: 03/27/25 13:11 Historian: patient Exam Limitations: no limitations Patient Subjective Stated Complaint: p[atient having chest pain and burning in his chest Triage Nursing Assessment: patient walked in said he began having chest pain this morning says he has been light headed since. patient Physician History: Patient is a 74-year-old male history of diabetes, coronary artery disease, [place], cardiac stent CHF TIA, A-fib on Eliquis presents to our ED for evaluation of substernal chest pain. Pain described as a burning sensation. Symptoms started this morning. No associated nausea or vomiting. No trauma no fever. Symptoms have improved since onset. Patient did not take his 40 mg of Lasix this morning. at bedside. They voiced no other complaints or concerns at this time. Portions of this note were created with voice recognition technology. There may be grammatical, spelling, punctuation or sound alike errors Timing/Duration: today Activities at Onset: none Quality: burning, other (Burning sensation) Location: substernal Chest Pain Radiation: no radiation Severity of Pain-Current: mild Modifying Factors: Improves With: nothing Associated Symptoms: denies symptoms Prior Chest Pain/Cardiac Workup: heart attack Nitro Today/Relief: no nitro taken today Aspirin Treatment Today: no aspirin today Allergies/Adverse Reactions: metformin Adverse Reaction (Verified 02/17/25 20:59) Stomach Pain Home Medications: Atorvastatin Calcium [Lipitor] 80 mg PO HS 07/04/16 [History] Albuterol 8 gm Mdi Hfa [Ventolin Hfa MDI] 8 gm IH QID PRN 02/23/19 [History] Brimonidine Tartrate/Timolol [Combigan 0.2%-0.5% Eye Drops] 1 drop OP DAILY 02/23/19 [History] Ropinirole HCl 1 mg PO BID 02/23/19 [History] Apixaban [Eliquis] 5 mg PO BID 06/28/20 [History] Magnesium Oxide 400 mg [Mag-Ox 400] 400 mg PO BID 10/08/21 [History] Multivitamin [Multi-Vitamin Daily] 1 each PO DAILY 10/08/21 [History] Zinc 440 mg PO DAILY 10/08/21 [History] Hydrocodone/Acetaminophen [Hydrocodone-Acetamin 7.5-325] 1 tab PO QIDPRN PRN 02/17/25 [History] Cyanocobalamin (Vitamin B-12) [B-12] 1,000 mcg PO DAILY 02/18/25 [History] Fluoxetine HCl 60 mg PO DAILY 02/18/25 [History] Hydroxyzine HCl 25 mg [Atarax 25 mg] 25 mg PO TIDPRN PRN 02/18/25 [History] Trazodone HCl 50 mg [Desyrel 50 mg] 50 mg PO HS 02/18/25 [History] carvediloL [Coreg] 25 mg PO BID 02/18/25 [History] Hx Tetanus, Diphtheria Vaccination/Date Given: Yes Hx Influenza Vaccination/Date Given: Yes Hx Pneumococcal Vaccination/Date Given: Yes Travel Risk - International Travel Have you traveled outside of the country in past 3 weeks: No - Emerging Infectious Disease Are you exhibiting symptoms associated with any current EIDs: No Symptoms: Shortness of Breath - Review of Systems All Other Systems: Reviewed and Negative - Past Medical History Pertinent Past Medical History: Yes Neurological History: TIA ENT History: Cataracts, Glaucoma Cardiac History: Arrhythmia, Congestive Heart Failure, Coronary Artery Disease, Hypertension, Myocardial Infarction ([place]) Respiratory History: Sleep Apnea, Other Endocrine Medical History: Diabetes Type II Musculoskeletal History: Osteoarthritis GI Medical History: GERD History: No Pertinent History Psycho-Social History: Anxiety Male Reproductive Disorders: Prostate Problems Other Medical History: COVID-19 [facility]. SOB AT TIMES. R TKA. polysythemia - Past Surgical History Past Surgical History: Yes Neuro Surgical History: No Pertinent History Cardiac: Cardiac Stent, Cardiac Catheterization Respiratory: No Pertinent History Gastrointestinal: Cholecystectomy Genitourinary: No Pertinent History Musculoskeletal: Orthopedic Surgery, Joint Replacement Male Surgical History: Vasectomy Other Surgical History: bilat rotator cuff surgery, right total knee. left hand. 10/02/21 cardiac ablation - Social History Smoking Status: Never smoker Exposure to second hand smoke: No Drug Use: none - Social Determinants of Health Will the patient participate in the screening: Yes Do you worry about a steady place to live?: No Do you have any problems with any of the following?: No known problems In the past 12 months,have you had to go without utilities?: No Transportation Issues: No Has anyone in your support network made you feel unsafe?: No Have you or anyone in your house had to go w/o enough food: No - Nursing Vital Signs Nursing Vital Signs: Initial Vital Signs Pulse Rate 117 H 03/27/25 11:59 Respiratory Rate 18 03/27/25 11:59 Blood Pressure 120/89 03/27/25 11:59 O2 Sat by Pulse Oximetry 99 03/27/25 11:59 Pain Scale Pain Intensity 2 - Physical Exam General Appearance: no apparent distress, alert Eye Exam: PERRL/EOMI, eyes nml inspection Ears, Nose, Throat Exam: normal ENT inspection, moist mucous membranes Neck Exam: normal inspection, full range of motion Respiratory Exam: normal breath sounds, lungs clear, airway intact, No respiratory distress Cardiovascular Exam: regular rate/rhythm, normal heart sounds, normal peripheral pulses Gastrointestinal/Abdomen Exam: soft, No tenderness, No mass Back Exam: normal inspection, No CVA tenderness, No vertebral tenderness Extremity Exam: normal inspection, normal range of motion Neurologic Exam: alert, oriented x 3, cooperative, normal mood/affect, sensation nml, No motor deficits Skin Exam: normal color, warm, dry Lymphatic Exam: No adenopathy SpO2 Interpretation: normal SpO2: 96 O2 Delivery: Room Air - Course Nursing assessment & vital signs reviewed: Yes EKG Interpreted by Me: RATE (121), A-fib, NORMAL AXIS, NORMAL INTERVALS, prolonged QT interval - Radiology Exams Chest X-ray Interpretation: Teleradiologist Report (Left pleural effusion, mild cardiomegaly) Ordered Tests: Active Orders 24 hr Category Date Time Status Production Floater STAT Care 03/27/25 12:06 Active EKG-ER Only STAT Care 03/27/25 12:06 Active IV Insertion STAT Care 03/27/25 12:06 Active Pulse Oximetry (ED) STAT Care 03/27/25 12:06 Active CHEST 1 VIEW (PORTABLE) Stat Exams 03/27/25 12:06 Completed CBC W DIFF Stat Lab 03/27/25 12:20 Completed CMP Stat Lab 03/27/25 12:20 Completed MAG [MAGNESIUM] Stat Lab 03/27/25 12:20 Completed NT PRO BNPII Stat Lab 03/27/25 12:20 Completed TROPONIN Q4H Lab 03/27/25 12:20 Completed TROPONIN Q4H Lab 03/27/25 17:00 Completed TROPONIN Q4H Lab 03/27/25 20:15 Ordered Medication Summary Generic Name Dose Route Start Last Admin Trade Name Freindia PRN Reason Stop Dose Admin Diltiazem HCl 100 mls @ 5 mls/hr 03/27/25 13:21 03/27/25 17:26 Cardizem Drip 100 Mg/100 Ml D5w IV 04/26/25 13:20 7 mg/hr .Q20H PRN 7 mls/hr HEART RATE/ A-FIB Administration Protocol 5 MG/HR Magnesium Sulfate/Dextrose 100 mls @ 100 mls/hr 03/27/25 15:15 03/27/25 19:17 Magnesium 1 Gm / 100 Ml D5w IV 03/27/25 17:14 Infused Q1H BARBARA Infusion Discontinued Medications Generic Name Dose Route Start Last Admin Trade Name Freindia PRN Reason Stop Dose Admin Aspirin 324 mg 03/27/25 13:22 03/27/25 13:38 Aspirin 81 Mg Tab.Chew PO 03/27/25 13:23 324 mg STAT ONE Administration Aspirin Confirm 03/27/25 13:31 Aspirin 81 Mg Tab.Chew Administered 03/27/25 13:32 Dose 324 mg .ROUTE .STK-MED ONE Diltiazem HCl 10 mg 03/27/25 13:46 03/27/25 13:38 Diltiazem Hcl Iv 5 Mg/Ml Vial IV 03/27/25 13:47 10 mg STAT ONE Administration Diltiazem HCl Confirm 03/27/25 14:23 Diltiazem Hcl Iv 5 Mg/Ml Vial Administered 03/27/25 14:24 Dose 50 mg IV .STK-MED ONE Furosemide 40 mg 03/27/25 13:21 03/27/25 13:37 Furosemide 40 Mg/4 Ml Vial IV 03/27/25 13:22 40 mg STAT ONE Administration Furosemide Confirm 03/27/25 13:31 Furosemide 40 Mg/4 Ml Vial Administered 03/27/25 13:32 Dose 40 mg .ROUTE .STK-MED ONE Lab/Rad Data: Laboratory Result Diagrams 03/27/25 12:20 03/27/25 12:20 Laboratory Results 03/27/25 03/27/25 03/27/25 Range/Units 17:00 12:20 12:20 WBC (4.23-9.07) x10^3/uL RBC (4.63-6.08) x10^6/uL Hgb (13.7-17.5) g/dL Hct (40.1-51.0) % MCV (79.0-92.2) fL MCH (25.7-32.2) pg MCHC (32.3-36.5) g/dL RDW (11.6-14.4) % Plt Count (163-337) x10^3/uL MPV (9.4-12.4) fL Gran % (34.0-67.9) % Immature Gran % (Auto) (0.001-0.429) % Nucleat RBC Rel Count (0.00-0.2) % Eos # (Auto) (0.04-0.54) x10^3/uL Immature Gran # (Auto) (0.001-0.031) x10^3u/L Absolute Lymphs (auto) (1.32-3.57) x10^3/uL Absolute Monos (auto) (0.30-0.82) x10^3/uL Absolute Nucleated RBC (0.00-0.012) x10^3u/L Lymphocytes % (21.8-53.1) % Monocytes % (5.3-12.2) % Eosinophils % (0.8-7.0) % Basophils % (0.2-1.2) % Absolute Granulocytes (1.78-5.38) x10^3/uL Basophils # (0.01-0.08) x10^3/uL Sodium (135-145) mmol/L Potassium (3.5-5.1) mmol/L Chloride (98-107) mmol/L Carbon Dioxide (22-30) mmol/L Anion Gap (5-15) MEQ/L BUN (9-20) mg/dL Creatinine (0.66-1.25) mg/dL Estimated GFR ML/MIN Glucose (74-106) mg/dL Calcium (8.4-10.2) mg/dL Magnesium 1.7 (1.6-2.3) mg/dL Total Bilirubin (0.2-1.3) mg/dL AST (17-59) U/L ALT (0-50) U/L Alkaline Phosphatase (38-126) U/L Troponin I 0.046 H* 0.050 H* (0.000-0.033) ng/mL NT-Pro-B Natriuret Pep (<300) pg/mL Serum Total Protein (6.3-8.2) g/dL Albumin (3.5-5.0) g/dL 03/27/25 03/27/25 Range/Units 12:20 12:20 WBC 9.5 H (4.23-9.07) x10^3/uL RBC 5.28 (4.63-6.08) x10^6/uL Hgb 13.7 (13.7-17.5) g/dL Hct 42.8 (40.1-51.0) % MCV 81.1 (79.0-92.2) fL MCH 25.9 (25.7-32.2) pg MCHC 32.0 L (32.3-36.5) g/dL RDW 17.3 H (11.6-14.4) % Plt Count 292 (163-337) x10^3/uL MPV 13.0 H (9.4-12.4) fL Gran % 81.7 H (34.0-67.9) % Immature Gran % (Auto) 0.4 (0.001-0.429) % Nucleat RBC Rel Count 0.0 (0.00-0.2) % Eos # (Auto) 0.04 (0.04-0.54) x10^3/uL Immature Gran # (Auto) 0.04 H (0.001-0.031) x10^3u/L Absolute Lymphs (auto) 1.04 L (1.32-3.57) x10^3/uL Absolute Monos (auto) 0.58 (0.30-0.82) x10^3/uL Absolute Nucleated RBC 0.00 (0.00-0.012) x10^3u/L Lymphocytes % 10.9 L (21.8-53.1) % Monocytes % 6.1 (5.3-12.2) % Eosinophils % 0.4 L (0.8-7.0) % Basophils % 0.5 (0.2-1.2) % Absolute Granulocytes 7.79 H (1.78-5.38) x10^3/uL Basophils # 0.05 (0.01-0.08) x10^3/uL Sodium 141 (135-145) mmol/L Potassium 4.4 (3.5-5.1) mmol/L Chloride 106 (98-107) mmol/L Carbon Dioxide 22 (22-30) mmol/L Anion Gap 17.8 H (5-15) MEQ/L BUN 16 (9-20) mg/dL Creatinine 1.25 (0.66-1.25) mg/dL Estimated GFR 61.2 ML/MIN Glucose 149 H (74-106) mg/dL Calcium 9.9 (8.4-10.2) mg/dL Magnesium (1.6-2.3) mg/dL Total Bilirubin 1.60 H (0.2-1.3) mg/dL AST 32 (17-59) U/L ALT 18 (0-50) U/L Alkaline Phosphatase 139 H (38-126) U/L Troponin I (0.000-0.033) ng/mL NT-Pro-B Natriuret Pep 3710 (<300) pg/mL Serum Total Protein 7.5 (6.3-8.2) g/dL Albumin 4.2 (3.5-5.0) g/dL - Progress Progress: improved Air Movement: good Progress Note: Patient in A-fib with RVR elevated troponin. Immediate intervention indicated to prevent further deterioration. Critical care time is greater than 194 minutes. Intervention includes administration of Cardizem to control the A-fib with RVR. 03/27/25 13:24 Case discussed with who accepts transfer to [facility] at 3:17 PM. 03/27/25 15:19 I independently reviewed the chest x-ray. Blunting of the left costophrenic angle consistent with a pleural effusion. Mild cardiomegaly. Formal read completed 03/27/25 16:57 Dr. Salgado hospitalist at [facility] accepts transfer at 5:52 PM. 03/27/25 17:52 [facility] has no beds available. The decision was made to admit patient to our hospital pending transfer/bed availability to [facility]. Spoke to our hospitalist at 8:24 PM. He accepts admission to [facility] for further evaluation and treatment. Plan of care discussed with patient who agrees to admission at [facility] pending transfer to [place]. Portions of this note were created with voice recognition technology. There may be grammatical, spelling, punctuation or sound alike errors 03/27/25 20:24 Patient is a 74-year-old male history of diabetes, coronary artery disease, [place], cardiac stent CHF TIA, A-fib on Eliquis presents to our ED for evaluation of substernal chest pain. Physical exam nonremarkable. Chest pain resolved upon arrival to our ED. EKG reveals A-fib with RVR. Cardizem drip initiated. Patient currently on Eliquis. No additional anticoagulation administered. Patient received 324 mg of chewable aspirin. Magnesium 1.7. Patient was showing PVC on EKG. We administered 2 g of magnesium. Patient did not take his furosemide this morning. He normally takes 40 mg daily. We administered his Lasix in our ED. Patient's initial troponin was 0.050. Repeat troponin was 0.046. Troponin appears to be downtrending likely secondary to improved rate control from Cardizem drip. Patient will be admitted for further evaluation and treatment. He voices no other complaints or concerns at this time. Portions of this note were created with voice recognition technology. There may be grammatical, spelling, punctuation or sound alike errors Complexity of problems addressed is moderate acute complicated. Critical care time is greater than 194 minutes. Complex of data reviewed and analyzed is extensive. Test ordered test reviewed results analyzed and correlated clinically with history and physical exam. Management discussed with distribution sales manager and hospitalist from [facility]. Management also discussed with our hospitalist, Dr. Dill as well. Risk of complication and or risk of morbidity/mortality of patient management is high. Patient requires hospitalization for further evaluation and treatment. Vital stable. Time spent to admit patient is approximately 20 minutes. Plan of care established for shared decision making. No social determinants of health present to impede follow-up. Portions of this note were created with voice recognition technology. There may be grammatical, spelling, punctuation or sound alike errors 03/27/25 20:27 Blood Culture(s) Obtained: No Antibiotics given: No Counseled pt/family regarding: lab results, diagnosis, rad results - Departure Departure Disposition: Transfer Clinical Impression: Atrial fibrillation, Prolonged QT interval, Chest pain, ACS (acute coronary syndrome), Elevated troponin Condition: Stable Critical Care Time: Yes Critical Care Time(excluding separately billable procedures): Critical > 194 mins Referrals: FATOU VALADEZ [Primary Care Provider, [facility]] - Follow up/PCP as directed
[2025-03-27] MEDS ORDERED: Lasix 40 MG/4 ML ONE (13:31)
[2025-03-27] MEDS ORDERED: BABY ASPIRIN 81 MG CHEW ONE (13:31)
[2025-03-27] MEDS: Lasix 40 MG/4 ML IV ONE (13:37)
[2025-03-27] MEDS: BABY ASPIRIN 81 MG CHEW PO ONE (13:38)
[2025-03-27] MEDS: CARDIZEM DRIP 100 MG/100 ML D5W 100 ML IV PRN (13:38)
[2025-03-27] MEDS: Cardizem IV 50 MG/10 ML IV ONE (13:38)
[2025-03-27] MEDS ORDERED: Cardizem IV 50 MG/10 ML IV ONE (14:23)
--- NOTE | 2025-03-27 14:52 | XRAY ---
CLINICAL HISTORY: pain COMPARISON: None. TECHNIQUE: X-ray images of the chest were obtained in the posteroanterior (PA) projection. FINDINGS: Pulmonary Parenchyma: There is no evidence of consolidation, collapse, or focal opacities. No pulmonary nodules are identified. The left costophrenic angle is obliterated by a mild pleural effusion. There is no evidence of right pleural effusion or pleural thickening. Heart and Mediastinum: There is mild cardiomegaly. No mediastinal widening or masses are identified. No hilar or mediastinal lymphadenopathy is seen. Bony Thorax: The bony thorax appears intact, without fractures. There is thoracic scoliosis convex to the right. Bilateral shoulder degenerative changes are noted. Soft Tissues: The soft tissues overlying the chest wall are unremarkable. IMPRESSION: 1. Blunting of the left costophrenic angle by mild pleural effusion; clinical correlation and follow-up are recommended. 2. Mild cardiomegaly. Electronically Signed by: Anastacio Mosley MD. (03/27/2025 14:49:15 EDT)
[2025-03-27] MEDS ORDERED: Magnesium 1 Gm / 100 Ml D5W*** 100 ML IV ONE ×2 (15:25→18:19)
[2025-03-27] MEDS: Magnesium 1 Gm / 100 Ml D5W*** 100 ML IV SCH (17:23)
[2025-03-27] MEDS ORDERED: NORCO 5/325 MG ONE (20:37)
[2025-03-27] MEDS: NORCO 5/325 MG PO ONE (20:38)
--- NOTE | 2025-03-27 21:36 | PCM.HP ---
History of Present Illness - Chief Complaint Chief Complaint: Chest pain History of Present Illness: is a 74 year old male with past medical history of diabetes, CAD/TX status post stent, CHF, history of TIA, and atrial fibrillation on Eliquis presented with chest pain. Patient reported experiencing chest pain in the morning with associated lightheadedness. Pain was described as burning, 8/10 with associated diaphoresis, SOB, nausea, and palpitations. He was found to be in A-fib with RVR with heart rate in the 140s and then started on Cardizem drip subsequently. ED workup was notable for initial elevated troponin of 0.05 which then decreased to 0.046. Patient has been chest pain-free in the ED. Chest x- ray showed mild left pleural effusion and mild cardiomegaly. Patient has been accepted by [facility] for transfer but awaiting bed availability - will be admitted for observation until transferred to be seen by cardiology. - Review of Systems Constitutional: No Symptoms Eyes: No Symptoms Ears, Nose, & Throat: No Symptoms Respiratory: Short Of Breath Cardiac: Chest Pain, Palpitations Abdominal/Gastrointestinal: Nausea Genitourinary Symptoms: No Symptoms Musculoskeletal: No Symptoms Skin: No Symptoms Neurological: No Symptoms Psychological: No Symptoms Endocrine: No Symptoms Hematologic/Lymphatic: No Symptoms Immunological/Allergic: No Symptoms All Other Systems: Reviewed and Negative Medications & Allergies Home Medications: Home Medication List Atorvastatin Calcium [Lipitor] 80 mg PO HS 07/04/16 [History Confirmed 03/27/25] Albuterol 8 gm Mdi Hfa [Ventolin Hfa MDI] 8 gm IH QID PRN 02/23/19 [History Confirmed 03/27/25] Brimonidine Tartrate/Timolol [Combigan 0.2%-0.5% Eye Drops] 1 drop OP DAILY 02/23/19 [History Confirmed 03/27/25] Ropinirole HCl 1 mg PO BID 02/23/19 [History Confirmed 03/27/25] Aspirin 81 mg PO DAILY #0 03/22/19 [Rx Confirmed 03/27/25] Apixaban [Eliquis] 5 mg PO BID 06/28/20 [History Confirmed 03/27/25] Magnesium Oxide 400 mg [Mag-Ox 400] 400 mg PO BID 10/08/21 [History Confirmed 03/27/25] Multivitamin [Multi-Vitamin Daily] 1 each PO DAILY 10/08/21 [History Confirmed 03/27/25] Zinc 440 mg PO DAILY 10/08/21 [History Confirmed 03/27/25] Hydrocodone/Acetaminophen [Hydrocodone-Acetamin 7.5-325] 1 tab PO QIDPRN PRN 02/17/25 [History Confirmed 03/27/25] Cyanocobalamin (Vitamin B-12) [B-12] 1,000 mcg PO DAILY 02/18/25 [History Confirmed 03/27/25] Fluoxetine HCl 60 mg PO DAILY 02/18/25 [History Confirmed 03/27/25] Hydroxyzine HCl 25 mg [Atarax 25 mg] 25 mg PO TIDPRN PRN 02/18/25 [History Confirmed 03/27/25] Trazodone HCl 50 mg [Desyrel 50 mg] 50 mg PO HS 02/18/25 [History Confirmed 03/27/25] carvediloL [Coreg] 25 mg PO BID 02/18/25 [History Confirmed 03/27/25] Empagliflozin [Jardiance] 10 mg PO DAILY 30 Days #30 tablet 02/21/25 [Rx Confirmed 03/27/25] Sacubitril/Valsartan [Entresto 24 mg-26 mg Tablet] 1 each PO BID 30 Days #60 tablet 02/21/25 [Rx Confirmed 03/27/25] Doxycycline Hyclate 100 mg [Vibramycin 100 MG] 100 mg PO BID 10 Days #20 tab 02/22/25 [Rx Confirmed 03/27/25] Empagliflozin [Jardiance] 10 mg PO DAILY tablet 02/22/25 [Rx Confirmed 03/27/25] Insulin Glargine [Lantus Insulin] 15 unit SQ BID 30 Days #90 unit 02/22/25 [Rx Confirmed 03/27/25] Insulin Lispro See Rx Instructions .ROUTE .COMPLEX 30 Days #1 unit 02/22/25 [Rx Confirmed 03/27/25] Sacubitril/Valsartan [Entresto 49 mg-51 mg Tablet] 0.5 tablet PO BID tablet 02/22/25 [Rx Confirmed 03/27/25] Spironolactone 25 mg [Aldactone 25 MG] 25 mg PO DAILY 30 Days #30 tablet 02/22/25 [Rx Confirmed 03/27/25] Syrge-Ndl,Ins 0.3 ml Half Uziel [Insulin Syringe] 1 each MC BID 30 Days #60 kit 02/22/25 [Rx Confirmed 03/27/25] Torsemide 20 mg [Demadex 20 mg] 40 mg PO DAILY 30 Days #30 tablet 02/22/25 [Rx Confirmed 03/27/25] Allergies/Adverse Reactions: Allergies Allergy/AdvReac Type Severity Reaction Status Date / Time metformin AdvReac Stomach Verified 02/17/25 20:59 Pain - Past Medical History Past Medical History: Yes Neurological History: Seizures, TIA ENT History: Cataracts, Glaucoma Cardiac History: Arrhythmia, Congestive Heart Failure, Coronary Artery Disease, High Cholesterol, Hypertension, Myocardial Infarction ([place]) Respiratory History: CHF, Sleep Apnea, Other Endocrine Medical History: Diabetes Type II Musculoskelatal History: Fractures, Osteoarthritis GI Medical History: GERD History: No Pertinent History Pyscho-Social History: Anxiety Male Reproductive Disorders: Prostate Problems Comment: COVID-19 WITH [facility]. SOB AT TIMES. R TKA. polysythemia, afib - Past Surgical History Past Surgical History: Yes Neuro Surgical History: No Pertinent History Cardiac History: Cardiac Stent, Cardiac Catheterization Respiratory Surgery: No Pertinent History GI Surgical History: Cholecystectomy Genitourinary Surgical Hx: No Pertinent History Musculskeletal Surgical Hx: Orthopedic Surgery, Joint Replacement Male Surgical History: Vasectomy Other Surgical History: bilat rotator cuff surgery, right total knee. left hand. 10/02/21 cardiac ablation - Social History Smoking Status: Never smoker Exposure to second hand smoke: No Alcohol: None Drug Use: none - Social Determinants of Health Will the patient participate in the screening: Yes Do you worry about a steady place to live?: No Do you have any problems with any of the following?: No known problems In the past 12 months,have you had to go without utilities?: No Have you or anyone in your house had to go without enough: No Transportation Issues: No Has anyone in your support network made you feel unsafe?: No Does the patient want assistance with any of the above?: No - Physical Exam Vital Signs: Vital Signs - 24 hr Pulse Pulse Resp BP BP Pulse Ox 03/27/25 20:31 96 03/27/25 19:31 116 H 18 131/98 03/27/25 19:01 114 H 28 H 133/94 03/27/25 18:30 111 H 22 137/109 98 03/27/25 18:07 112 H 22 134/95 87 L 03/27/25 18:06 126 H 26 H 69 L 03/27/25 17:30 139/83 03/27/25 17:28 112 H 21 122/70 03/27/25 17:26 113 H 16 139/83 03/27/25 17:20 107 H 24 03/27/25 17:10 122 H 23 03/27/25 17:03 111 H 32 H 03/27/25 16:31 111 H 21 116/80 03/27/25 16:02 107 H 17 124/90 03/27/25 15:30 92 H 19 121/92 03/27/25 15:00 104 H 17 131/89 03/27/25 14:30 128 H 20 115/87 03/27/25 14:00 95 H 19 106/83 03/27/25 13:40 122 H 21 112/70 03/27/25 13:38 118 H 20 112/70 03/27/25 13:31 122/101 03/27/25 13:21 120 H 03/27/25 13:14 119 H 14 125/90 98 03/27/25 13:00 119 H 125/90 98 03/27/25 12:30 119 H 11 L 107/75 98 03/27/25 12:06 96 03/27/25 12:04 115 H 22 118/87 93 L 03/27/25 11:59 117 H 18 120/89 99 General Appearance: no apparent distress Neurologic Exam: alert, oriented x 3 Eye Exam: PERRL/EOMI, eyes nml inspection Ears, Nose, Throat Exam: moist mucous membranes Neck Exam: normal inspection, non-tender Respiratory Exam: normal breath sounds, lungs clear Cardiovascular Exam: tachycardia, irregular, edema Gastrointestinal/Abdomen Exam: soft, normal bowel sounds Skin Exam: normal color, warm, dry Results - Labs Lab/Micro Results: Lab Results-Last 24 Hours 03/27/25 03/27/25 03/27/25 Range/Units 12:20 12:20 12:20 WBC 9.5 H (4.23-9.07) x10^3/uL RBC 5.28 (4.63-6.08) x10^6/uL Hgb 13.7 (13.7-17.5) g/dL Hct 42.8 (40.1-51.0) % MCV 81.1 (79.0-92.2) fL MCH 25.9 (25.7-32.2) pg MCHC 32.0 L (32.3-36.5) g/dL RDW 17.3 H (11.6-14.4) % Plt Count 292 (163-337) x10^3/uL MPV 13.0 H (9.4-12.4) fL Gran % 81.7 H (34.0-67.9) % Immature Gran % (Auto) 0.4 (0.001-0.429) % Nucleat RBC Rel Count 0.0 (0.00-0.2) % Eos # (Auto) 0.04 (0.04-0.54) x10^3/uL Immature Gran # (Auto) 0.04 H (0.001-0.031) x10^3u/L Absolute Lymphs (auto) 1.04 L (1.32-3.57) x10^3/uL Absolute Monos (auto) 0.58 (0.30-0.82) x10^3/uL Absolute Nucleated RBC 0.00 (0.00-0.012) x10^3u/L Lymphocytes % 10.9 L (21.8-53.1) % Monocytes % 6.1 (5.3-12.2) % Eosinophils % 0.4 L (0.8-7.0) % Basophils % 0.5 (0.2-1.2) % Absolute Granulocytes 7.79 H (1.78-5.38) x10^3/uL Basophils # 0.05 (0.01-0.08) x10^3/uL Sodium 141 (135-145) mmol/L Potassium 4.4 (3.5-5.1) mmol/L Chloride 106 (98-107) mmol/L Carbon Dioxide 22 (22-30) mmol/L Anion Gap 17.8 H (5-15) MEQ/L BUN 16 (9-20) mg/dL Creatinine 1.25 (0.66-1.25) mg/dL Estimated GFR 61.2 ML/MIN Glucose 149 H (74-106) mg/dL Calcium 9.9 (8.4-10.2) mg/dL Magnesium (1.6-2.3) mg/dL Total Bilirubin 1.60 H (0.2-1.3) mg/dL AST 32 (17-59) U/L ALT 18 (0-50) U/L Alkaline Phosphatase 139 H (38-126) U/L Troponin I 0.050 H* (0.000-0.033) ng/mL NT-Pro-B Natriuret Pep 3710 (<300) pg/mL Serum Total Protein 7.5 (6.3-8.2) g/dL Albumin 4.2 (3.5-5.0) g/dL 03/27/25 03/27/25 Range/Units 12:20 17:00 WBC (4.23-9.07) x10^3/uL RBC (4.63-6.08) x10^6/uL Hgb (13.7-17.5) g/dL Hct (40.1-51.0) % MCV (79.0-92.2) fL MCH (25.7-32.2) pg MCHC (32.3-36.5) g/dL RDW (11.6-14.4) % Plt Count (163-337) x10^3/uL MPV (9.4-12.4) fL Gran % (34.0-67.9) % Immature Gran % (Auto) (0.001-0.429) % Nucleat RBC Rel Count (0.00-0.2) % Eos # (Auto) (0.04-0.54) x10^3/uL Immature Gran # (Auto) (0.001-0.031) x10^3u/L Absolute Lymphs (auto) (1.32-3.57) x10^3/uL Absolute Monos (auto) (0.30-0.82) x10^3/uL Absolute Nucleated RBC (0.00-0.012) x10^3u/L Lymphocytes % (21.8-53.1) % Monocytes % (5.3-12.2) % Eosinophils % (0.8-7.0) % Basophils % (0.2-1.2) % Absolute Granulocytes (1.78-5.38) x10^3/uL Basophils # (0.01-0.08) x10^3/uL Sodium (135-145) mmol/L Potassium (3.5-5.1) mmol/L Chloride (98-107) mmol/L Carbon Dioxide (22-30) mmol/L Anion Gap (5-15) MEQ/L BUN (9-20) mg/dL Creatinine (0.66-1.25) mg/dL Estimated GFR ML/MIN Glucose (74-106) mg/dL Calcium (8.4-10.2) mg/dL Magnesium 1.7 (1.6-2.3) mg/dL Total Bilirubin (0.2-1.3) mg/dL AST (17-59) U/L ALT (0-50) U/L Alkaline Phosphatase (38-126) U/L Troponin I 0.046 H* (0.000-0.033) ng/mL NT-Pro-B Natriuret Pep (<300) pg/mL Serum Total Protein (6.3-8.2) g/dL Albumin (3.5-5.0) g/dL - Radiology Impressions Radiology Exams & Impressions: Radiology Procedures Category Date Time Status CHEST 1 VIEW (PORTABLE) Stat Exams 03/27/25 12:06 Completed Assessment/Plan (1) Atrial fibrillation with RVR Current Visit: Yes Status: Acute Assessment & Plan: Continue on Cardizem drip Start heparin drip Continue BB Needs ECHO Keep K+>4 and Mg>[address] [facility] for cardiology evaluation Code(s): I48.91 - UNSPECIFIED ATRIAL FIBRILLATION (2) Chest pain Current Visit: Yes Status: Acute Qualifiers: Chest pain type: unspecified Qualified Code(s): R07.9 - Chest pain, unspecified Assessment & Plan: Monitor on telemetry Serial troponins Cardiology evaluation Code(s): R07.9 - CHEST PAIN, UNSPECIFIED (3) Elevated troponin Current Visit: Yes Status: Acute Assessment & Plan: Monitor on telemetry Trend serial troponins Code(s): R79.89 - OTHER SPECIFIED ABNORMAL FINDINGS OF BLOOD CHEMISTRY (4) Hypomagnesemia Current Visit: Yes Status: Acute Assessment & Plan: Given 2 g IV magnesium in the ED Code(s): E83.42 - HYPOMAGNESEMIA (5) Chronic heart failure Current Visit: Yes Status: Chronic Qualifiers: Heart failure type: unspecified Qualified Code(s): I50.9 - Heart failure, unspecified Assessment & Plan: Currently appears compensated Continue BB, aldactone, Entresto, Jardiance, torsemide Code(s): I50.9 - HEART FAILURE, UNSPECIFIED (6) Essential (primary) hypertension Current Visit: Yes Status: Chronic Assessment & Plan: Continue current oral antihypertensives Code(s): I10 - ESSENTIAL (PRIMARY) HYPERTENSION (7) Type 2 diabetes mellitus with diabetic chronic kidney disease Current Visit: Yes Status: Acute Qualifiers: Diabetes mellitus joint terminal attack controller insulin use: without joint terminal attack controller use Chronic kidney disease stage: stage 2 (GFR 60-89) Qualified Code(s): E11.22 - Type 2 diabetes mellitus with diabetic chronic kidney disease; N18.2 - Chronic kidney disease, stage 2 (mild) Assessment & Plan: Continue home meds Add insulin sliding scale Code(s): E11.22 - TYPE 2 DIABETES MELLITUS W DIABETIC CHRONIC KIDNEY DISEASE (8) Hyperlipemia Current Visit: No Status: Chronic Qualifiers: Hyperlipidemia type: mixed hyperlipidemia Qualified Code(s): E78.2 - Mixed hyperlipidemia Assessment & Plan: Continue statin Code(s): E78.5 - HYPERLIPIDEMIA, UNSPECIFIED (9) PVD (peripheral vascular disease) Current Visit: No Status: Chronic Code(s): I73.9 - PERIPHERAL VASCULAR DISEASE, UNSPECIFIED (10) Venous (peripheral) insufficiency Current Visit: No Status: Chronic Code(s): I87.2 - VENOUS INSUFFICIENCY (CHRONIC) (PERIPHERAL) (11) CAD (coronary artery disease) Current Visit: Yes Status: Chronic Qualifiers: Coronary Disease-Associated Artery/Lesion type: [place] artery [place] vs. transplanted heart: [place] heart Associated angina: unspecified whether angina present Qualified Code(s): I25.10 - Atherosclerotic heart disease of [place] coronary artery without angina pectoris Assessment & Plan: Continue ASA, statin, BB Code(s): I25.10 - ATHSCL HEART DISEASE OF [place] CORONARY ARTERY W/O ANG PCTRS Telemedicine Encounter - Telemedicine Encounter Telemedicine Encounter: "The entirety of this encounter was performed via Telemedicine" This visit was performed using real-time audio and video connection between my location and thepatients locationwith the assistance of a surrogateat the patients location. Written or verbal consent was obtained from the patient/guardian to perform this visit usingsynchrGET Holding NVtelemedicine technology. Any patient questions regarding the telemedicine interaction were answered.
[2025-03-27] MEDS ORDERED: Heparin 25,000 units/D5W: USE ORDER SET PROTO 25,000 UNITS/250 ML BAG IV ONE (23:18)
[2025-03-27 23:23] LABS: INR 1.05 (0.8-3.0); PROTIME 11.4 SECONDS (9.4-12.5); PTT 22.6 SECONDS (25.1-36.5)
[2025-03-27] MEDS: HEPARIN 5000 UNITS/0.5 ML (HIGH RISK MED) IV STA (23:39)
[2025-03-27] MEDS: Heparin 25,000 units/D5W: USE ORDER SET PROTO 25,000 UNITS/250 ML BAG IV SCH (23:40)
[2025-03-28] MEDS: HUMALOG SQ PRN (00:49)
[2025-03-28] MEDS: Lantus Insulin SQ ONE (00:49)
[2025-03-28] MEDS: Requip 0.5 MG PO ONE (00:50)
[2025-03-28] MEDS: Zocor 10MG PO ONE (00:50)
[2025-03-28] MEDS: DESYREL 50 MG PO ONE (00:50)
[2025-03-28] MEDS: COREG 12.5 MG PO ONE (00:50)
[2025-03-28] MEDS: MAG-OX 400 PO ONE (00:50)
[2025-03-28] MEDS: ENTRESTO 49 MG-51 MG TABLET PO ONE (00:50)
[2025-03-28 04:33] LABS: Hematocrit 38.8 % (40.1-51.0); Hemoglobin 12.3 g/dL (13.7-17.5); Mean Corpuscular Hemoglobin 26.3 pg (25.7-32.2); Mean Corpuscular Hgb Concent. 31.7 g/dL (32.3-36.5); Platelet Count 230 x10^3/uL (163-337); Red Blood Count 4.67 x10^6/uL (4.63-6.08); White Blood Count 7.7 x10^3/uL (4.23-9.07)
[2025-03-28 04:47] LABS: Calcium 8.8 mg/dL (8.4-10.2); Carbon Dioxide 23.0 mmol/L (22-30); Creatinine 1 1.19 mg/dL (0.66-1.25); EST GLOMERULAR FILTRATION RATE 64.9 ML/MIN; Glucose 186.0 mg/dL (74-106); Potassium 3.8 mmol/L (3.5-5.1); SGOT/AST 25.0 U/L (17-59); SGPT/ALT 17.0 U/L (0-50); Total Protein 6.5 g/dL (6.3-8.2)
[2025-03-28] MEDS: PROAMATINE PO ONE (04:59)
[2025-03-28] MEDS ORDERED: NORCO 7.5/325 MG TAB PO PRN (07:02)
[2025-03-28] MEDS ORDERED: ATARAX 25 MG PO PRN (07:02)
[2025-03-28] MEDS ORDERED: VENTOLIN COMMON CANISTER IH PRN (07:12)
[2025-03-28] MEDS ORDERED: Ventolin Hfa MDI IH SCH (07:15)
[2025-03-28] MEDS ORDERED: MEDICATION INTERVENTION MC SCH (07:30)
[2025-03-28] MEDS: Klor Con PO ONE (08:29)
[2025-03-28] MEDS: Lantus Insulin SQ SCH (09:29)
[2025-03-28] MEDS: COREG 12.5 MG PO SCH (09:30)
[2025-03-28] MEDS: DEMADEX 20 MG PO SCH (09:30)
[2025-03-28] MEDS: Prozac 20 MG PO SCH (09:30)
[2025-03-28] MEDS: ECOTRIN 81 MG PO SCH (09:30)
[2025-03-28] MEDS: Vitamin B-12 500 MCG PO SCH (09:30)
[2025-03-28] MEDS: Requip 0.5 MG PO SCH (09:31)
[2025-03-28] MEDS: MAG-OX 400 PO SCH (09:31)
[2025-03-28] MEDS: THERAGRAN MULTIVITAMIN PO SCH (09:31)
[2025-03-28] MEDS: Aldactone 25 MG PO SCH (09:31)
[2025-03-28] MEDS: ENTRESTO 49 MG-51 MG TABLET PO SCH (09:31)
[2025-03-28] MEDS: JARDIANCE PO SCH (09:32)
[2025-03-28] MEDS: Zinc Gluconate 50 MG PO SCH (09:32)
[2025-03-28] MEDS ORDERED: NON-FORMULARY ITEM (Ropinirole Hcl [Ropinirole Hcl] 1 MG Tablet) PO SCH (10:00)
[2025-03-28] MEDS ORDERED: NON-FORMULARY ITEM (Brimonidine Tartrate/Timolol [Combigan 0.2%-0.5% Eye Drops] 5 ML Drops OP SCH (10:00)
[2025-03-28] MEDS ORDERED: NON-FORMULARY ITEM (Aspirin [Aspirin] 81 MG Tablet) PO SCH (10:00)
[2025-03-28] MEDS ORDERED: NON-FORMULARY ITEM (Multivitamin [Multi-Vitamin Daily] 1 EACH Tablet) PO SCH (10:00)
[2025-03-28] MEDS ORDERED: NON-FORMULARY ITEM (Carvedilol [Coreg] 25 MG Tablet) PO SCH (10:00)
[2025-03-28] MEDS ORDERED: NON-FORMULARY ITEM (Cyanocobalamin (Vitamin B-12) [B-12] 1,000 MCG Tablet) PO SCH (10:00)
[2025-03-28] MEDS ORDERED: FLUOXETINE HCL 60 MG PO SCH (10:00)
[2025-03-28] MEDS ORDERED: NON-FORMULARY ITEM (Zinc [Zinc] 50 MG Tablet) PO SCH (10:00)
[2025-03-28] MEDS ORDERED: NON-FORMULARY ITEM (Sacubitril/Valsartan [Entresto 24 Mg-26 Mg Tablet] 1 EACH Tablet) PO SCH (10:00)
--- NOTE | 2025-03-28 11:32 | PCM.DS ---
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 He was found to be in atrial fibrillation with RVR, with rates in the 140s, and was started on a Cardizem infusion. Troponins were mildly elevated (0.050, 0.046, 0.047), and chest X-ray showed mild left pleural effusion and cardiomegaly. His chest pain resolved in the ED, and he has remained stable without recurrence of symptoms. Cardizem drip was discontinued overnight, and he remains on a heparin infusion while awaiting echocardiogram. He has been accepted for transfer to [facility] for cardiology evaluation, and discharge will occur once a bed is available. At the time of discharge planning, he denies chest pain, shortness of breath, abdominal pain, nausea, vomiting, or diarrhea. - Vitals & Intake/Output Vital Signs: Vital Signs Temperature 97.8 F 03/28/25 08:00 Pulse Rate 85 03/28/25 11:00 Respiratory Rate 32 H 03/28/25 11:00 Blood Pressure 85/62 03/28/25 11:00 O2 Sat by Pulse Oximetry 98 03/28/25 11:00 Intake & Output: Intake & Output 03/25/25 03/26/25 03/27/25 03/28/25 11:59 11:59 11:59 11:59 Intake Total 1106 Output Total 700 Balance 406 Weight 81.3 kg - Lab Result Diagrams: 03/28/25 04:18 03/28/25 04:18 Lab Results-Last 24 Hrs: Lab Results-Last 24 Hours 03/27/25 03/27/25 03/27/25 Range/Units 12:20 12:20 12:20 WBC 9.5 H (4.23-9.07) x10^3/uL RBC 5.28 (4.63-6.08) x10^6/uL Hgb 13.7 (13.7-17.5) g/dL Hct 42.8 (40.1-51.0) % MCV 81.1 (79.0-92.2) fL MCH 25.9 (25.7-32.2) pg MCHC 32.0 L (32.3-36.5) g/dL RDW 17.3 H (11.6-14.4) % Plt Count 292 (163-337) x10^3/uL MPV 13.0 H (9.4-12.4) fL Gran % 81.7 H (34.0-67.9) % Immature Gran % (Auto) 0.4 (0.001-0.429) % Nucleat RBC Rel Count 0.0 (0.00-0.2) % Eos # (Auto) 0.04 (0.04-0.54) x10^3/uL Immature Gran # (Auto) 0.04 H (0.001-0.031) x10^3u/L Absolute Lymphs (auto) 1.04 L (1.32-3.57) x10^3/uL Absolute Monos (auto) 0.58 (0.30-0.82) x10^3/uL Absolute Nucleated RBC 0.00 (0.00-0.012) x10^3u/L Lymphocytes % 10.9 L (21.8-53.1) % Monocytes % 6.1 (5.3-12.2) % Eosinophils % 0.4 L (0.8-7.0) % Basophils % 0.5 (0.2-1.2) % Absolute Granulocytes 7.79 H (1.78-5.38) x10^3/uL Basophils # 0.05 (0.01-0.08) x10^3/uL PT (9.4-12.5) SECONDS INR (0.8-3.0) APTT (25.1-36.5) SECONDS Sodium 141 (135-145) mmol/L Potassium 4.4 (3.5-5.1) mmol/L Chloride 106 (98-107) mmol/L Carbon Dioxide 22 (22-30) mmol/L Anion Gap 17.8 H (5-15) MEQ/L BUN 16 (9-20) mg/dL Creatinine 1.25 (0.66-1.25) mg/dL Estimated GFR 61.2 ML/MIN Glucose 149 H (74-106) mg/dL POC Glucometer (74 to 106) mg/dL Calcium 9.9 (8.4-10.2) mg/dL Magnesium (1.6-2.3) mg/dL Total Bilirubin 1.60 H (0.2-1.3) mg/dL AST 32 (17-59) U/L ALT 18 (0-50) U/L Alkaline Phosphatase 139 H (38-126) U/L Troponin I 0.050 H* (0.000-0.033) ng/mL NT-Pro-B Natriuret Pep 3710 (<300) pg/mL Serum Total Protein 7.5 (6.3-8.2) g/dL Albumin 4.2 (3.5-5.0) g/dL Prealbumin (17.6-36.0) mg/dL 03/27/25 03/27/25 03/27/25 Range/Units 12:20 17:00 22:16 WBC (4.23-9.07) x10^3/uL RBC (4.63-6.08) x10^6/uL Hgb (13.7-17.5) g/dL Hct (40.1-51.0) % MCV (79.0-92.2) fL MCH (25.7-32.2) pg MCHC (32.3-36.5) g/dL RDW (11.6-14.4) % Plt Count (163-337) x10^3/uL MPV (9.4-12.4) fL Gran % (34.0-67.9) % Immature Gran % (Auto) (0.001-0.429) % Nucleat RBC Rel Count (0.00-0.2) % Eos # (Auto) (0.04-0.54) x10^3/uL Immature Gran # (Auto) (0.001-0.031) x10^3u/L Absolute Lymphs (auto) (1.32-3.57) x10^3/uL Absolute Monos (auto) (0.30-0.82) x10^3/uL Absolute Nucleated RBC (0.00-0.012) x10^3u/L Lymphocytes % (21.8-53.1) % Monocytes % (5.3-12.2) % Eosinophils % (0.8-7.0) % Basophils % (0.2-1.2) % Absolute Granulocytes (1.78-5.38) x10^3/uL Basophils # (0.01-0.08) x10^3/uL PT (9.4-12.5) SECONDS INR (0.8-3.0) APTT (25.1-36.5) SECONDS Sodium (135-145) mmol/L Potassium (3.5-5.1) mmol/L Chloride (98-107) mmol/L Carbon Dioxide (22-30) mmol/L Anion Gap (5-15) MEQ/L BUN (9-20) mg/dL Creatinine (0.66-1.25) mg/dL Estimated GFR ML/MIN Glucose (74-106) mg/dL POC Glucometer (74 to 106) mg/dL Calcium (8.4-10.2) mg/dL Magnesium 1.7 (1.6-2.3) mg/dL Total Bilirubin (0.2-1.3) mg/dL AST (17-59) U/L ALT (0-50) U/L Alkaline Phosphatase (38-126) U/L Troponin I 0.046 H* 0.047 H* (0.000-0.033) ng/mL NT-Pro-B Natriuret Pep (<300) pg/mL Serum Total Protein (6.3-8.2) g/dL Albumin (3.5-5.0) g/dL Prealbumin (17.6-36.0) mg/dL 03/27/25 03/28/25 03/28/25 Range/Units 22:30 00:01 04:18 WBC 7.7 (4.23-9.07) x10^3/uL RBC 4.67 (4.63-6.08) x10^6/uL Hgb 12.3 L (13.7-17.5) g/dL Hct 38.8 L (40.1-51.0) % MCV 83.1 (79.0-92.2) fL MCH 26.3 (25.7-32.2) pg MCHC 31.7 L (32.3-36.5) g/dL RDW 17.0 H (11.6-14.4) % Plt Count 230 (163-337) x10^3/uL MPV 12.0 (9.4-12.4) fL Gran % (34.0-67.9) % Immature Gran % (Auto) (0.001-0.429) % Nucleat RBC Rel Count (0.00-0.2) % Eos # (Auto) (0.04-0.54) x10^3/uL Immature Gran # (Auto) (0.001-0.031) x10^3u/L Absolute Lymphs (auto) (1.32-3.57) x10^3/uL Absolute Monos (auto) (0.30-0.82) x10^3/uL Absolute Nucleated RBC (0.00-0.012) x10^3u/L Lymphocytes % (21.8-53.1) % Monocytes % (5.3-12.2) % Eosinophils % (0.8-7.0) % Basophils % (0.2-1.2) % Absolute Granulocytes (1.78-5.38) x10^3/uL Basophils # (0.01-0.08) x10^3/uL PT 11.4 (9.4-12.5) SECONDS INR 1.05 (0.8-3.0) APTT 22.6 L (25.1-36.5) SECONDS Sodium (135-145) mmol/L Potassium (3.5-5.1) mmol/L Chloride (98-107) mmol/L Carbon Dioxide (22-30) mmol/L Anion Gap (5-15) MEQ/L BUN (9-20) mg/dL Creatinine (0.66-1.25) mg/dL Estimated GFR ML/MIN Glucose (74-106) mg/dL POC Glucometer 286 H (74 to 106) mg/dL Calcium (8.4-10.2) mg/dL Magnesium (1.6-2.3) mg/dL Total Bilirubin (0.2-1.3) mg/dL AST (17-59) U/L ALT (0-50) U/L Alkaline Phosphatase (38-126) U/L Troponin I (0.000-0.033) ng/mL NT-Pro-B Natriuret Pep (<300) pg/mL Serum Total Protein (6.3-8.2) g/dL Albumin (3.5-5.0) g/dL Prealbumin (17.6-36.0) mg/dL 03/28/25 03/28/25 03/28/25 Range/Units 04:18 04:18 04:18 WBC (4.23-9.07) x10^3/uL RBC (4.63-6.08) x10^6/uL Hgb (13.7-17.5) g/dL Hct (40.1-51.0) % MCV (79.0-92.2) fL MCH (25.7-32.2) pg MCHC (32.3-36.5) g/dL RDW (11.6-14.4) % Plt Count (163-337) x10^3/uL MPV (9.4-12.4) fL Gran % (34.0-67.9) % Immature Gran % (Auto) (0.001-0.429) % Nucleat RBC Rel Count (0.00-0.2) % Eos # (Auto) (0.04-0.54) x10^3/uL Immature Gran # (Auto) (0.001-0.031) x10^3u/L Absolute Lymphs (auto) (1.32-3.57) x10^3/uL Absolute Monos (auto) (0.30-0.82) x10^3/uL Absolute Nucleated RBC (0.00-0.012) x10^3u/L Lymphocytes % (21.8-53.1) % Monocytes % (5.3-12.2) % Eosinophils % (0.8-7.0) % Basophils % (0.2-1.2) % Absolute Granulocytes (1.78-5.38) x10^3/uL Basophils # (0.01-0.08) x10^3/uL PT (9.4-12.5) SECONDS INR (0.8-3.0) APTT 59.1 H (25.1-36.5) SECONDS Sodium 137 (135-145) mmol/L Potassium 3.8 (3.5-5.1) mmol/L Chloride 106 (98-107) mmol/L Carbon Dioxide 23 (22-30) mmol/L Anion Gap 12.8 (5-15) MEQ/L BUN 19 (9-20) mg/dL Creatinine 1.19 (0.66-1.25) mg/dL Estimated GFR 64.9 ML/MIN Glucose 186 H (74-106) mg/dL POC Glucometer (74 to 106) mg/dL Calcium 8.8 (8.4-10.2) mg/dL Magnesium (1.6-2.3) mg/dL Total Bilirubin 1.10 (0.2-1.3) mg/dL AST 25 (17-59) U/L ALT 17 (0-50) U/L Alkaline Phosphatase 94 (38-126) U/L Troponin I (0.000-0.033) ng/mL NT-Pro-B Natriuret Pep (<300) pg/mL Serum Total Protein 6.5 (6.3-8.2) g/dL Albumin 3.5 (3.5-5.0) g/dL Prealbumin 11.84 L (17.6-36.0) mg/dL 03/28/25 03/28/25 03/28/25 Range/Units 04:18 07:23 07:39 WBC (4.23-9.07) x10^3/uL RBC (4.63-6.08) x10^6/uL Hgb (13.7-17.5) g/dL Hct (40.1-51.0) % MCV (79.0-92.2) fL MCH (25.7-32.2) pg MCHC (32.3-36.5) g/dL RDW (11.6-14.4) % Plt Count (163-337) x10^3/uL MPV (9.4-12.4) fL Gran % (34.0-67.9) % Immature Gran % (Auto) (0.001-0.429) % Nucleat RBC Rel Count (0.00-0.2) % Eos # (Auto) (0.04-0.54) x10^3/uL Immature Gran # (Auto) (0.001-0.031) x10^3u/L Absolute Lymphs (auto) (1.32-3.57) x10^3/uL Absolute Monos (auto) (0.30-0.82) x10^3/uL Absolute Nucleated RBC (0.00-0.012) x10^3u/L Lymphocytes % (21.8-53.1) % Monocytes % (5.3-12.2) % Eosinophils % (0.8-7.0) % Basophils % (0.2-1.2) % Absolute Granulocytes (1.78-5.38) x10^3/uL Basophils # (0.01-0.08) x10^3/uL PT (9.4-12.5) SECONDS INR (0.8-3.0) APTT 51.8 H (25.1-36.5) SECONDS Sodium (135-145) mmol/L Potassium (3.5-5.1) mmol/L Chloride (98-107) mmol/L Carbon Dioxide (22-30) mmol/L Anion Gap (5-15) MEQ/L BUN (9-20) mg/dL Creatinine (0.66-1.25) mg/dL Estimated GFR ML/MIN Glucose (74-106) mg/dL POC Glucometer 154 H (74 to 106) mg/dL Calcium (8.4-10.2) mg/dL Magnesium 2.2 (1.6-2.3) mg/dL Total Bilirubin (0.2-1.3) mg/dL AST (17-59) U/L ALT (0-50) U/L Alkaline Phosphatase (38-126) U/L Troponin I (0.000-0.033) ng/mL NT-Pro-B Natriuret Pep (<300) pg/mL Serum Total Protein (6.3-8.2) g/dL Albumin (3.5-5.0) g/dL Prealbumin (17.6-36.0) mg/dL Micro Results-Entire Visit: Accuchecks Date 03/28/25 Date 03/28/25 Time 07:36 Time 00:01 - Radiology Exams Ordered Rad Exams-Entire Visit: Radiology Procedures Category Date Time Status CHEST 1 VIEW (PORTABLE) Stat Exams 03/27/25 12:06 Completed ECHO W/2D AND DOPPLER [US] Routine Exams 03/28/25 08:14 Ordered - Procedures and Test Procedures and Tests throughout Hospitalization: Therapy Orders & Screens 03/28/25 03:51 Oxygen Nasal Cannula 2 lpm Comment: Diagnosis: Chest pain 03/28/25 04:00 EKG ROUTINE Comment: Diagnosis: Chest pain 03/28/25 07:30 OT Screen per Nursing Assess ONCE Comment: Protocol Order Physician Instructions: Greater than 3 points order OT Admission Screening Reason For Exam: Triggered on Admission Diagnosis: Chest pain, ACS Open Wound/Cellutlitis/Pressure Ulcers: Yes Acute Fx/ORIF/Change in wt bearing status: No Severe MUSCULOSKELETAL pain: No ADL Dysfunction: No Acute CVA w/Hemiparesis/Hemiplegia: No Decreased Functional Mobility/Strength: No Sprain/Strain: No Acute Post-op Mobility Dysfunction: No Total Points: 5 PT Screen per Nursing Assess ONCE Comment: Protocol Order Physician Instructions: Greater than 3 points order PT Admission Screenin Reason For Exam: Triggered on Admission Diagnosis: Chest pain, ACS Open Wound/Cellutlitis/Pressure Ulcers: Yes Acute Fx/ORIF/Change in wt bearing status: No Severe MUSCULOSKELETAL pain: No ADL Dysfunction: No Acute CVA w/Hemiparesis/Hemiplegia: No Decreased Functional Mobility/Strength: No Sprain/Strain: No Acute Post-op Mobility Dysfunction: No Total Points: 5 Discharge Exam General Appearance: no apparent distress, alert Neurologic Exam: alert, oriented x 3, cooperative, normal mood/affect, nml cerebellar function, sensation nml, No motor deficits Eye Exam: PERRL, EOMI, eyes nml inspection Ears, Nose, Throat Exam: normal ENT inspection, pharynx normal, moist mucous membranes Neck Exam: normal inspection, non-tender, supple, full range of motion Respiratory Exam: normal breath sounds, lungs clear, No respiratory distress Cardiovascular Exam: normal heart sounds, irregular Gastrointestinal/Abdomen Exam: soft, No tenderness, No mass Male Genitalia Exam: deferred Rectal Exam: deferred Back Exam: normal inspection, normal range of motion, No CVA tenderness, No vertebral tenderness Extremity Exam: normal inspection, normal range of motion Skin Exam: normal color, warm, dry Wound Assessment: Skin/Wound Assessment Wound/Incision Assessment Start: 03/27/25 22:28 Text: Status: Active Freq: Q6H Protocol: Document 03/28/25 07:[address] [facility] (Rec: 03/28/25 08:[address] [facility] [id number]) Wound/Incision Assessment Left Medial Great Toe Wound Assessment Shift Assessment Wound Type Healing wound Wound Stage Non Pressure Wound Drainage Amount None General Appearance Open to air,Blackened Wound Bed Greatest Portion Black (Eschar) Surrounding Tissue [place] Right Medial Great Toe Wound Assessment Shift Assessment Wound Type Healing wound Wound Stage Non Pressure Wound Drainage Amount None General Appearance Open to air,Clean/Dry Surrounding Tissue [place] Left Lower Anterior Distal Leg Wound Assessment Shift Assessment Wound Stage Non Pressure Wound Dressing Status Dry & Intact Drainage Amount Minimal Drainage Description Serous Drainage Odor None/Absent General Appearance Draining Length (cm) (cm) 4.5 Depth (cm) (cm) 2.5 Wound Bed Greatest Portion Yellow (Slough) Wound Bed Lesser Portion Dusky Red Surrounding Tissue Dark Red,Taut Primary Dressing Mepilex Comment Mepilex remains in place Left Lower Posterior Distal Leg Wound Assessment Shift Assessment Wound Type healing wound Wound Stage Non Pressure Wound General Appearance Open to air,Blackened Length (cm) (cm) 4 Width (cm) (cm) 4 Wound Bed Greatest Portion Dusky Red Wound Bed Lesser Portion Black (Eschar) Surrounding Tissue Dark Red,Taut Bilateral Lower Leg Wound Assessment Shift Assessment Wound Type Redness, warmth, scaley & swelling Wound Stage Non Pressure Wound General Appearance Open to air,Reddened Wound Photo Photo Taken No Final Diagnosis/Problem List - Final Discharge Diagnosis/Problem (1) Atrial fibrillation with RVR Current Visit: Yes Status: Acute Code(s): I48.91 - UNSPECIFIED ATRIAL FIBRILLATION (2) Chest pain Current Visit: Yes Status: Acute Code(s): R07.9 - CHEST PAIN, UNSPECIFIED (3) Elevated troponin Current Visit: Yes Status: Acute Code(s): R79.89 - OTHER SPECIFIED ABNORMAL FINDINGS OF BLOOD CHEMISTRY (4) Hypomagnesemia Current Visit: Yes Status: Acute Code(s): E83.42 - HYPOMAGNESEMIA (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 Current Visit: Yes Status: Acute Code(s): E11.22 - TYPE 2 DIABETES MELLITUS W DIABETIC CHRONIC KIDNEY DISEASE (6) CAD (coronary artery disease) Current Visit: Yes Status: Chronic Code(s): I25.10 - ATHSCL HEART DISEASE OF [place] CORONARY ARTERY W/O ANG PCTRS (7) Chronic heart failure Current Visit: Yes Status: Chronic Code(s): I50.9 - HEART FAILURE, UNSPECIFIED (8) Essential (primary) hypertension Current Visit: Yes Status: Chronic Code(s): I10 - ESSENTIAL (PRIMARY) HYPERTENSION (9) Hyperlipemia Current Visit: No Status: Chronic Code(s): E78.5 - HYPERLIPIDEMIA, UNSPECIFIED (10) PVD (peripheral vascular disease) Current Visit: No Status: Chronic Code(s): I73.9 - PERIPHERAL VASCULAR DISEASE, UNSPECIFIED (11) Venous (peripheral) insufficiency Current Visit: No Status: Chronic Assessment & Plan: (1) Atrial fibrillation with RVR Current Visit: Yes Status: Acute Assessment & Plan: Cardizem drip weaned off at 3;32 AM d/t hypotension Start heparin drip Continue BB Needs ECHO Keep K+>4 and Mg>[address] [facility] for cardiology evaluation 03/28 - K+ 3.8 replaced Code(s): I48.91 - UNSPECIFIED ATRIAL FIBRILLATION (2) Chest pain Current Visit: Yes Status: Acute Qualifiers: Chest pain type: unspecified Qualified Code(s): R07.9 - Chest pain, unspecified Assessment & Plan: Monitor on telemetry Serial troponins 0.050, 0.046, 0.047 Cardiology evaluation Echo Tx to higher level of care d/t significant heart hx Code(s): R07.9 - CHEST PAIN, UNSPECIFIED (3) Elevated troponin Current Visit: Yes Status: Acute Assessment & Plan: Monitor on telemetry Trend serial troponins Code(s): R79.89 - OTHER SPECIFIED ABNORMAL FINDINGS OF BLOOD CHEMISTRY (4) Hypomagnesemia Current Visit: Yes Status: Acute Assessment & Plan: Given 2 g IV magnesium in the ED 03/28 - Resolved Code(s): E83.42 - HYPOMAGNESEMIA (5) Chronic heart failure Current Visit: Yes Status: Chronic Qualifiers: Heart failure type: unspecified Qualified Code(s): I50.9 - Heart failure, unspecified Assessment & Plan: Currently appears compensated Continue BB, aldactone, Entresto, Jardiance, torsemide Code(s): I50.9 - HEART FAILURE, UNSPECIFIED (6) Essential (primary) hypertension Current Visit: Yes Status: Chronic Assessment & Plan: Continue current oral antihypertensives Code(s): I10 - ESSENTIAL (PRIMARY) HYPERTENSION (7) Type 2 diabetes mellitus with diabetic chronic kidney disease Current Visit: Yes Status: Acute Qualifiers: Diabetes mellitus superintendent container terminal insulin use: without superintendent container terminal use Chronic kidney disease stage: stage 2 (GFR 60-89) Qualified Code(s): E11.22 - Type 2 diabetes mellitus with diabetic chronic kidney disease; N18.2 - Chronic kidney disease, stage 2 (mild) Assessment & Plan: Continue home meds Add insulin sliding scale Code(s): E11.22 - TYPE 2 DIABETES MELLITUS W DIABETIC CHRONIC KIDNEY DISEASE (8) Hyperlipemia Current Visit: No Status: Chronic Qualifiers: Hyperlipidemia type: mixed hyperlipidemia Qualified Code(s): E78.2 - Mixed hyperlipidemia Assessment & Plan: Continue statin Code(s): E78.5 - HYPERLIPIDEMIA, UNSPECIFIED (9) PVD (peripheral vascular disease) Current Visit: No Status: Chronic Code(s): I73.9 - PERIPHERAL VASCULAR DISEASE, UNSPECIFIED - Chronic (10) Venous (peripheral) insufficiency Current Visit: No Status: Chronic Code(s): I87.2 - VENOUS INSUFFICIENCY (CHRONIC) (PERIPHERAL) - Chronic (11) CAD (coronary artery disease) Current Visit: Yes Status: Chronic Qualifiers: Coronary Disease-Associated Artery/Lesion type: [place] artery [place] vs. transplanted heart: [place] heart Associated angina: unspecified whether angina present Qualified Code(s): I25.10 - Atherosclerotic heart disease of [place] coronary artery without angina pectoris Assessment & Plan: Continue ASA, statin, BB Code(s): I25.10 - ATHSCL HEART DISEASE OF [place] CORONARY ARTERY W/O ANG PCTRS Plan of care time > 40 minutes Code(s): I87.2 - VENOUS INSUFFICIENCY (CHRONIC) (PERIPHERAL) - Discharge Discharge Date: 03/28/25 Disposition: DC TO [facility] Condition: Stable Prescriptions: Continue Atorvastatin Calcium [Lipitor] 80 mg PO HS Albuterol 8 gm Mdi Hfa [Ventolin Hfa MDI] 8 gm IH QID PRN Brimonidine Tartrate/Timolol [Combigan 0.2%-0.5% Eye Drops] 1 drop OP DAILY Ropinirole HCl 1 mg PO BID Aspirin 81 mg PO DAILY #0 Apixaban [Eliquis] 5 mg PO BID Multivitamin [Multi-Vitamin Daily] 1 each PO DAILY Magnesium Oxide 400 mg [Mag-Ox 400] 400 mg PO BID Zinc 440 mg PO DAILY Hydrocodone/Acetaminophen [Hydrocodone-Acetamin 7.5-325] 7.5 - 325 mg PO QIDPRN PRN PRN Reason: Pain Trazodone HCl 50 mg [Desyrel 50 mg] 50 mg PO HS Cyanocobalamin (Vitamin B-12) [B-12] 1,000 mcg PO DAILY Fluoxetine HCl 60 mg PO DAILY carvediloL [Coreg] 25 mg PO BID Hydroxyzine HCl 25 mg [Atarax 25 mg] 25 mg PO TIDPRN PRN PRN Reason: Itching Sacubitril/Valsartan [Entresto 24 mg-26 mg Tablet] 1 each PO BID 30 Days #60 tablet Empagliflozin [Jardiance] 10 mg PO DAILY 30 Days #30 tablet Spironolactone 25 mg [Aldactone 25 MG] 25 mg PO DAILY 30 Days #30 tablet Torsemide 20 mg [Demadex 20 mg] 40 mg PO DAILY 30 Days #30 tablet Syrge-Ndl,Ins 0.3 ml Half Uziel [Insulin Syringe] 1 each MC BID 30 Days #60 kit Insulin Glargine [Lantus Insulin] 15 unit SQ BID 30 Days #90 unit Insulin Lispro See Rx Instructions .ROUTE .COMPLEX 30 Days #1 unit Follow up with: FATOU VALADEZ [Primary Care Provider, INTERNAL MEDICINE]
[2025-03-28] MEDS: TYLENOL 325 MG PO PRN (15:42)
[2025-03-28 16:23] VITALS: TEMP 98.6; O2SAT 97
[2025-03-28 17:02] VITALS: BP 94/77; PULSE 88; RESP 16
[2025-03-28] MEDS ORDERED: ZOCOR 20MG PO SCH (22:00)
[2025-03-28] MEDS ORDERED: NON-FORMULARY ITEM (Atorvastatin Calcium [Lipitor] 80 MG Tablet) PO SCH (22:00)
[2025-03-28] MEDS ORDERED: DESYREL 50 MG PO SCH (22:00)
== END 2025-03-28 17:25 | disposition home or self-care (01) ==
LOC: ED 11:50 → ICU 21:14 → INTOOBSV 21:14 → UNDODISIN 03-28 17:25
PROVIDERS: ADMIT Hospitalist; ATTEND Hospitalist
DX: I48.20 Chronic atrial fibrillation, unspecified (principal); R07.9 Chest pain, unspecified; E11.22 Type 2 diabetes mellitus with diabetic chronic kidney disease; I12.9 Hypertensive chronic kidney disease with stage 1 through stage 4 chronic kidney disease, or unspecified chronic kidney disease; N18.2 Chronic kidney disease, stage 2 (mild); I25.10 Atherosclerotic heart disease of native coronary artery without angina pectoris; I25.2 Old myocardial infarction; I11.0 Hypertensive heart disease with heart failure; I50.9 Heart failure, unspecified; R79.89 Other specified abnormal findings of blood chemistry; I73.9 Peripheral vascular disease, unspecified; E83.42 Hypomagnesemia; E78.5 Hyperlipidemia, unspecified; E78.2 Mixed hyperlipidemia; I87.2 Venous insufficiency (chronic) (peripheral); Z79.01 Long term (current) use of anticoagulants; Z79.899 Other long term (current) drug therapy; Z86.16 Personal history of COVID-19; Z86.73 Personal history of transient ischemic attack (TIA), and cerebral infarction without residual deficits

== ENCOUNTER 2025-04-28 18:01 | Emergency (ER) | payer MEDICARE ==
[2025-04-28 18:12] VITALS: BP 119/97; RESP 16; TEMP 98
[2025-04-28 18:30] VITALS: PULSE 64; O2SAT 98
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
[2025-04-28] MEDS ORDERED: ATARAX 25 MG ONE (19:02)
[2025-04-28] MEDS: ATARAX 25 MG PO ONE (19:03)
== END 2025-04-28 18:51 | disposition home or self-care (01) ==
LOC: ED 18:01
DX: G89.29 Other chronic pain (principal); M54.50 Low back pain, unspecified; I11.0 Hypertensive heart disease with heart failure; I50.9 Heart failure, unspecified; E11.9 Type 2 diabetes mellitus without complications; Z79.01 Long term (current) use of anticoagulants; Z79.891 Long term (current) use of opiate analgesic; Z79.899 Other long term (current) drug therapy